=== PATIENT | female | born 1985 | race Caucasian/White ===

== ENCOUNTER → 2016-06-20 | Outpatient (CLI) | payer SELFPAY | LOC: RAD 12:00 | PROVIDERS: ATTEND Nurse Practitioner Women's Health | DX: Z34.82 Encounter for supervision of other normal pregnancy, second trimester (principal) | CPT/HCPCS: 76805 ==

== ENCOUNTER 2016-10-08 04:43 | Inpatient (IN) | payer MEDICAID ==
[2016-10-08] MEDS ORDERED: MAGNESIUM HYDROXIDE SUSP 30 ML UDCUP PO PRN (05:04)
[2016-10-08] MEDS ORDERED: PROMETHAZINE HCL 25 MG TABLET PO PRN (05:04)
[2016-10-08] MEDS ORDERED: BENZOCAINE/MENTHOL AEROSOL SPRAY 56 ML TOP PRN (05:04)
[2016-10-08] MEDS ORDERED: MEASLES,MUMPS&RUBELLA VACC/PF 0.5 ML VIAL SUBCUT PRN (05:04)
[2016-10-08] MEDS ORDERED: PROMETHAZINE HCL 25 MG SUPP.RECT PR PRN (05:04)
[2016-10-08] MEDS ORDERED: DIPHENHYDRAMINE HCL 25 MG CAPSULE PO PRN (05:04)
[2016-10-08] MEDS ORDERED: GLYCERIN/WITCH HAZEL LEAF 1 EACH MED..PAD TP PRN (05:04)
[2016-10-08] MEDS ORDERED: ZOLPIDEM TARTRATE 5 MG TABLET PO PRN (05:04)
[2016-10-08] MEDS ORDERED: PSEUDOEPHEDRINE HCL 30 MG TABLET PO PRN (05:04)
[2016-10-08] MEDS ORDERED: PROMETHAZINE HCL INJ 25 MG/1 ML VIAL IV PRN (05:04)
[2016-10-08] MEDS ORDERED: OXYTOCIN/NORMAL SALINE 1,000 ML IV PRN (05:04)
[2016-10-08] MEDS ORDERED: DIPH/PERTUSS(ACELL)/TETANUS VAC/PF 0.5 ML SYR (>=10YO) IM PRN (05:04)
[2016-10-08] MEDS ORDERED: DIBUCAINE 1% OINTMENT 28 GM TP PRN (05:04)
[2016-10-08] MEDS ORDERED: ACETAMINOPHEN 650 MG SUPP.RECT PR PRN (05:04)
[2016-10-08] MEDS ORDERED: NA PHOS,M-B/NA PHOS,DI-BA (ADULT) 133 ML ENEMA PR PRN (05:04)
[2016-10-08] MEDS ORDERED: ACETAMINOPHEN WITH CODEINE #3 TABLET PO PRN ×2 (05:04)
[2016-10-08 05:29] LABS: ABSOLUTE LYMPHOCYTES (AUTO) 1.3 10^3/uL (0.5-4.7); ABSOLUTE MONOCYTES (AUTO) 0.5 10^3/uL (0.1-1.4); ABSOLUTE NEUT (AUTO) 13.2 10^3/uL (1.7-8.2); BASOPHILS % (AUTO) 0.2 % (0-2); EOSINOPHILS % (AUTO) 0.1 % (0-6); HEMATOCRIT 33.1 % (36.0-47.0); HEMOGLOBIN 11.5 g/dL (12.0-15.5); HGB HCT DIFFERENCE 1.4; LYMPHOCYTES % (AUTO) 8.5 % (13-45); MEAN CORPUSCULAR HEMOGLOBIN 31.8 pg (27.0-33.4); MEAN CORPUSCULAR HGB CONC 34.7 g/dL (32.0-36.0); MEAN CORPUSCULAR VOLUME 92 fl (80-97); MONOCYTES % (AUTO) 3.6 % (3-13); RED BLOOD COUNT 3.61 10^6/uL (3.72-5.28); RED CELL DISTRIBUTION WIDTH 12.4 % (11.5-14.0); SEGMENTED NEUTROPHILS % (AUTO) 87.6 % (42-78)
[2016-10-08] MEDS ORDERED: OXYTOCIN/NORMAL SALINE 20 UNIT/1,000 ML RTUINJ ONE (05:48)
--- NOTE | 2016-10-08 07:35 | Delivery Summary ---
Del Sum A-C Datetime Report Generated by CPN: 10/08/2016 07:34 DELIVERY PERSONNEL DELIVERY PERSONNEL: ,[id number] Delivery Doctor:: Trav Desir MD Labor and Delivery Nurse:: Jen Spears RN Valve Mechanic/CABIN MAN: Christine Hensley, ST MATERNAL INFORMATION Delivery Anesthesia: None Medications After Delivery: Pitocin Drip 20 Units/1000ml NSS Meds After Delivery Comment: bolus Estimated Blood Loss (ml): 250 Maternal Complications: Precipitous Labor (<3hrs) Provider Comments: She delivered in the ambulance. The placenta was delivered in the room. LABOR SUMMARY EDC: 10/02/2016 00:00 No. Babies in Womb: 1 (Annotations: Data stored by [facility] on behalf of user) Attempted: No Labor Anesthesia: None LABOR INFORMATION Reason for Induction: Not Applicable Onset of Labor: 10/08/2016 04:00 Oxytocin: N/A Group B Beta Strep: negative Antibiotics # of Doses: 0 Steroids Given: None Reason Steroids Not Administered: Not Applicable MEMBRANES Membranes Rupture Method: Spontaneous Rupture of Membranes: 10/08/2016 04:00 Length of Rupture (hr): 0.53 Amniotic Fluid Color: Moderate Meconium Amniotic Fluid Amount: Moderate Amniotic Fluid Odor: Normal STAGES OF LABOR Stage 3 hr: 0 Stage 3 min: 17 Total Time in Labor hr: 0 Total Time in Labor min: 49 VAGINAL DELIVERY Episiotomy: None Laceration Extension: N/A Laceration Type: None Laceration Repair: Not Applicable Sponge Count Correct: N/A Sharps Count Correct: N/A CSECTION DELIVERY Primary Indication: N/A Secondary Indication: N/A CSection Incidence: N/A Labor: N/A Elective: N/A CSection Incision: N/A BABY A INFORMATION Infant Delivery Date/Time: 10/08/2016 04:32 Method of Delivery: Vaginal Born in Route : Yes : N/A Forceps: N/A Vacuum Extraction: N/A Shoulder Dystocia : No PRESENTATION/POSITION BABY A Presentation: Cephalic Cephalic Presentation: Vertex Breech Presentation: N/A PLACENTA INFORMATION BABY A Placenta Delivery Time : 10/08/2016 04:49 Placenta Method of Delivery: Spontaneous Placenta Status: Delivered SCORES BABY A Heart Rate 1 min: >100 bpm Resp Effort 1 min: Slow, Irregular Reflex Irritability 1 min: Cough or Sneeze or Pulls Away Muscle Tone 1 min: Active Motion Color 1 min: Blue/Pale Resuscitation Effort 1 min: Tactile Stimulation SCORE 1 MIN: 7 Heart Rate 5 min: >100 bpm Resp Effort 5 min: Good Cry Reflex Irritability 5 min: Cough or Sneeze or Pulls Away Muscle Tone 5 min: Active Motion Color 5 min: Body [place], Extremities Blue Resuscitation Effort 5 min: N/A SCORE 5 MIN: 9 INFORMATION BABY A Gestational Age at Delivery: 40.6 Gestational Status: Full Term- 39- 40.6 Weeks Infant Outcome : Liveborn Infant Condition : Stable Infant Sex: Male IDENTIFICATION BABY A Verification Date/Time: 10/08/2016 05:04 ID Band Number: [id number] Mother's Name Verified: Yes RN Verifying : SRosalind Jonas, RN _ JRosalind [facility] [place], RN WEIGHT/LENGTH BABY A Birthweight (gm): 3980 Infant Weight (lb): 8 Weight (oz): 12 Length (in): 20.50 Infant Length (cm): 52.07 CORD INFORMATION BABY A No. Cord Vessels: 3 Nuchal Cord : N/A Cord Blood Taken: No-Annotate Banking/Donate Info: did not obtain cord blood Suction: None ASSESSMENT BABY A Skin to Skin: No Transferred To: [facility] BABY B INFORMATION : N/A SIGNATURES Signature: with User ID: [email or web address]
[2016-10-08 07:47] LABS: APPEARANCE,URINE CLOUDY; BILIRUBIN,URINE NEGATIVE (NEGATIVE); GLUCOSE, URINE NEGATIVE (NEGATIVE); KETONES,URINE 20 mg/dL (NEGATIVE); LEUKOCYTE ESTERASE,URINE TRACE (NEGATIVE); NITRITE,URINE NEGATIVE (NEGATIVE); PROTEIN,URINE 100 mg/dL (NEGATIVE); URINE SPECIFIC GRAVITY 1.014; UROBILINOGEN,URINE NEGATIVE mg/dL (<2.0)
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
[2016-10-08 08:10] LABS: URINE BARBITURATES SCREEN NEGATIVE; URINE METHADONE SCREEN NEGATIVE; URINE OPIATES LOW NEGATIVE; URINE PHENCYCLIDINE SCREEN NEGATIVE
[2016-10-08] MEDS: FERROUS SULFATE 325 MG TABLET PO SCH ×2 (10:22→17:22)
[2016-10-08] MEDS: FAMOTIDINE 20 MG TABLET PO SCH ×2 (10:22→21:07)
[2016-10-08] MEDS: DOCUSATE SODIUM 100 MG CAPSULE PO SCH ×2 (10:22→17:22)
[2016-10-08] MEDS: PRENATAL VITAMIN W-O CA NO5/FE FUMARATE/FA CAPSULE PO SCH (10:22)
[2016-10-08] MEDS: SENNOSIDES/DOCUSATE 8.6-50 MG 1 EACH TABLET PO SCH (10:23)
[2016-10-08] MEDS: IBUPROFEN 800 MG TABLET PO SCH ×3 (11:45→21:06)
[2016-10-08] MEDS ORDERED: ACETAMINOPHEN 325 MG TABLET PO PRN (12:04)
[2016-10-09] MEDS: IBUPROFEN 800 MG TABLET PO SCH ×3 (05:10→21:17)
[2016-10-09 07:34] LABS: HEMATOCRIT 30.3 % (36.0-47.0); HEMOGLOBIN 10.6 g/dL (12.0-15.5); HGB HCT DIFFERENCE 1.5; MEAN CORPUSCULAR HEMOGLOBIN 32.2 pg (27.0-33.4); MEAN CORPUSCULAR VOLUME 92 fl (80-97); RED BLOOD COUNT 3.29 10^6/uL (3.72-5.28); RED CELL DISTRIBUTION WIDTH 12.9 % (11.5-14.0); WHITE BLOOD COUNT 10.7 10^3/uL (4.0-10.5)
[2016-10-09] MEDS: PRENATAL VITAMIN W-O CA NO5/FE FUMARATE/FA CAPSULE PO SCH (09:43)
[2016-10-09] MEDS: FERROUS SULFATE 325 MG TABLET PO SCH ×2 (09:44→17:35)
[2016-10-09] MEDS: DOCUSATE SODIUM 100 MG CAPSULE PO SCH ×2 (09:44→17:35)
[2016-10-09] MEDS: FAMOTIDINE 20 MG TABLET PO SCH ×2 (09:44→21:17)
[2016-10-09] MEDS: SENNOSIDES/DOCUSATE 8.6-50 MG 1 EACH TABLET PO SCH (09:45)
--- NOTE | 2016-10-09 11:32 | PDOC PROGRESS REPORT ---
Subjective-OB Subjective: Post Delivery Day:1 31 year old G14 now P8 s/p ppd1. Ambulating without difficulty. Denies any needs at this time Physical Exam (OB) Vital Signs: Temp Pulse Resp BP Pulse Ox 97.3 F 45 L 18 91/50 L 99 10/09/16 07:23 10/09/16 07:23 10/09/16 07:23 10/09/16 07:23 10/09/16 07:23 Intake & Output 10/08/16 10/09/16 10/10/16 06:59 06:59 06:59 Weight 77.564 kg - General General Appearance: Appears well In distress: None - Episiotomy/Laceration Site Condition: N/A - Lochia Lochia Amount: Moderate 25-50 ml Lochia Color: Serosa/Brown - Abdomen Description: Soft Hernia Present: No Fundal Description: Firm, Midline Fundal Height: u/u - u/2 - Respiratory Respiratory Status: No respiratory distress - Extremities Upper extremity: Normal inspection Lower extremities: Normal inspection - Neurological Cognition: Normal Orientation: AAOx4 - Psychological Associated symptoms: Flat affect Objective-Diagnostic Laboratory: 10/09/16 07:00 10/09/16 10/09/16 07:00 07:00 WBC 10.7 H RBC 3.29 L Hgb 10.6 L Hct 30.3 L MCV 92 MCH 32.2 MCHC 35.0 RDW 12.9 Plt Count 151 Blood Type O NEGATIVE Assessment and Plan(PN) - Assessment and Plan (1) Acute blood loss anemia Is this a current diagnosis for this admission?: YesPlan: inc. iron in diet and feso4 supplementation (2) Delivery normal Is this a current diagnosis for this admission?: YesPlan: continue stay (3) Benzodiazepine abuse Is this a current diagnosis for this admission?: YesPlan: discharge planning and resources,continue stay (4) Cocaine abuse affecting Qualifiers: Trimester: unspecified trimester Qualified Code(s): O99.320 - Drug use complicating , unspecified trimester Is this a current diagnosis for this admission?: YesPlan: continue stay, discharge planning - Time Spent with Patient Time with patient: Less than 15 minutes Smoking Education Provided: Over 3 minutes Medications reviewed and adjusted accordingly: Yes - Disposition Anticipated Discharge: Home Within: within 24 hours
[2016-10-10] MEDS: IBUPROFEN 800 MG TABLET PO SCH ×2 (05:58→13:48)
[2016-10-10 08:30] VITALS: BP 99/64
[2016-10-10] MEDS: FAMOTIDINE 20 MG TABLET PO SCH (09:16)
[2016-10-10] MEDS: SENNOSIDES/DOCUSATE 8.6-50 MG 1 EACH TABLET PO SCH (09:16)
[2016-10-10] MEDS: DOCUSATE SODIUM 100 MG CAPSULE PO SCH (09:16)
[2016-10-10] MEDS: PRENATAL VITAMIN W-O CA NO5/FE FUMARATE/FA CAPSULE PO SCH (09:16)
[2016-10-10] MEDS: FERROUS SULFATE 325 MG TABLET PO SCH (09:16)
--- NOTE | 2016-10-10 11:12 | PDOC DISCHARGE SUMMARY ---
Final Diagnosis Discharge Date: 10/10/16 - Final Diagnosis (1) Acute blood loss anemia Is this a current diagnosis for this admission?: Yes (2) Delivery normal Is this a current diagnosis for this admission?: Yes (3) Benzodiazepine abuse Is this a current diagnosis for this admission?: Yes (4) Cocaine abuse affecting Is this a current diagnosis for this admission?: Yes Discharge Data - Discharge Medication Home Medications: Pnv W-O Ca No5/Fe Fumarate/FA [-U Multiple Vitamin Capsule] 1 cap PO DAILY #30 capsule 11/04/11 Reason(s) for Admission: Onset of Labor Procedures: None Intrapartum Procedure(s): Spontaneous Vaginal Delivery - Diagnosis Test Laboratory: Temp Pulse Resp BP Pulse Ox 97.7 F 59 L 16 99/64 L 97 10/10/16 07:27 10/10/16 07:27 10/10/16 07:27 10/10/16 07:27 10/10/16 07:27 10/08/16 10/08/16 10/09/16 05:06 06:55 07:00 RBC 3.61 L 3.29 L Hgb 11.5 L 10.6 L Hct 33.1 L 30.3 L Urine Opiates Screen NEGATIVE - Discharge information/Instructions Discharge Activity: Balance Activity w/Rest Discharge Diet: Regular Disposition: HOME, SELF-CARE Follow up with: [facility] in: 4 - landscape architect and planner and DSS
--- NOTE | 2016-10-10 11:26 | PDOC PROGRESS REPORT ---
Subjective-OB Subjective: Post Delivery Day: 31 year old. Denies any needs at this time grand multip history of cocaine abuse late to minimal pnc ff@u-2 reports heavy clots methergine 0.2 mg po x 1 now precautions given DSS and inventory planner involved pt doesn't have custody of other 6 children pt states she will be going to [place] and performing mandatory training Physical Exam (OB) Vital Signs: Temp Pulse Resp BP Pulse Ox 97.7 F 59 L 16 99/64 L 97 10/10/16 07:27 10/10/16 07:27 10/10/16 07:27 10/10/16 07:27 10/10/16 07:27 Intake & Output 10/09/16 10/10/16 10/11/16 06:59 06:59 06:59 Intake Total 0 300 Balance 0 300 - Lochia Lochia Amount: Scant < 10 ml Lochia Color: Serosa/Brown - Abdomen Description: Soft Hernia Present: No Fundal Description: Firm, Midline Fundal Height: u/u - u/2 Objective-Diagnostic Laboratory: 10/09/16 07:00 10/09/16 07:00 Blood Type O NEGATIVE Assessment and Plan(PN) - Assessment and Plan (1) Acute blood loss anemia Is this a current diagnosis for this admission?: Yes (2) Delivery normal Is this a current diagnosis for this admission?: Yes (3) Benzodiazepine abuse Is this a current diagnosis for this admission?: Yes (4) Cocaine abuse affecting Qualifiers: Trimester: unspecified trimester Qualified Code(s): O99.320 - Drug use complicating , unspecified trimester Is this a current diagnosis for this admission?: Yes - Time Spent with Patient Smoking Education Provided: Over 3 minutes Medications reviewed and adjusted accordingly: Yes - Disposition Anticipated Discharge: Home
== END 2016-10-10 14:41 | disposition home or self-care (01) | DRG 775 ==
LOC: LC 04:43 → LR 04:59 → 2S 07:45
PROVIDERS: ADMIT Obstetrics & Gynecology; ATTEND Obstetrics & Gynecology
PROC: 10E0XZZ Delivery of Products of Conception, External Approach (ICD-10-PCS; principal; 2016-10-08)
PROC: 4A1HXCZ Monitoring of Products of Conception, Cardiac Rate, External Approach (ICD-10-PCS; 2016-10-08)
DX: O99.02 Anemia complicating childbirth (principal); D62 Acute posthemorrhagic anemia; O99.324 Drug use complicating childbirth; F11.10 Opioid abuse, uncomplicated; F14.10 Cocaine abuse, uncomplicated; O99.334 Smoking (tobacco) complicating childbirth; F17.210 Nicotine dependence, cigarettes, uncomplicated; O99.344 Other mental disorders complicating childbirth; F31.9 Bipolar disorder, unspecified; O62.3 Precipitate labor; O77.0 Labor and delivery complicated by meconium in amniotic fluid; Z88.6 Allergy status to analgesic agent; Z37.0 Single live birth
CPT/HCPCS: 36415; 80307; 81005; 85025; 85027; 85461; 86592; 86850; 86900; 86901; 88307; J2590; J2790

== ENCOUNTER 2017-02-05 10:10 | Emergency (ER) | payer SELFPAY ==
[2017-02-05 10:16] VITALS: BP 116/79
[2017-02-05 12:02] LABS: ANION GAP 11 (5-19); BLOOD UREA NITROGEN 14 mg/dL (7-20); CALCIUM 9.9 mg/dL (8.4-10.2); CARBON DIOXIDE 24 mmol/L (22-30); CHLORIDE 109 mmol/L (98-107); CREATININE RESULT 0.81 mg/dL (0.52-1.25); GLUCOSE 88 mg/dL (75-110); POTASSIUM 4.6 mmol/L (3.6-5.0); SODIUM 143.9 mmol/L (137-145)
[2017-02-05 12:07] LABS: ALCOHOL < 10 mg/dL (NONE DETECTED)
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
[2017-02-05 13:10] LABS: APPEARANCE,URINE CLEAR; BILIRUBIN,URINE NEGATIVE (NEGATIVE); GLUCOSE, URINE NEGATIVE (NEGATIVE); KETONES,URINE NEGATIVE (NEGATIVE); LEUKOCYTE ESTERASE,URINE NEGATIVE (NEGATIVE); NITRITE,URINE NEGATIVE (NEGATIVE); PROTEIN,URINE NEGATIVE (NEGATIVE); URINE SPECIFIC GRAVITY 1.042; UROBILINOGEN,URINE NEGATIVE mg/dL (<2.0)
[2017-02-05 13:26] LABS: URINE BARBITURATES SCREEN NEGATIVE; URINE METHADONE SCREEN NEGATIVE; URINE OPIATES LOW NEGATIVE; URINE PHENCYCLIDINE SCREEN NEGATIVE
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
== END 2017-02-05 14:17 | disposition left against medical advice (07) ==
LOC: ER 10:10 → EEVIPCON 10:10 → ER 14:17
DX: S09.90XA Unspecified injury of head, initial encounter (principal); S00.83XA Contusion of other part of head, initial encounter; R51 Headache; Y04.0XXA Assault by unarmed brawl or fight, initial encounter; Z79.899 Other long term (current) drug therapy
CPT/HCPCS: 36415; 70450; 70491; 80048; 80307; 81001; 84703; 99281

== ENCOUNTER 2017-06-23 18:43 | Emergency (ER) | payer SELFPAY ==
[2017-06-23] MEDS ORDERED: ONDANSETRON HCL INJ/PF 4 MG/2 ML SDV IV ONE (19:46)
[2017-06-23] MEDS ORDERED: NORMAL SALINE 1000 ML 1,000 ML IV ONE (19:46)
--- NOTE | 2017-06-23 19:50 | ER Document Report ---
ED General - General Chief Complaint: Other Stated Complaint: ABDOMINAL PAIN Time Seen by Provider: 06/23/17 19:34 Notes: Patient is a 32-year-old female who comes emergency department for several complaints. First complaint is pain over her right wrist, she states she fell on her wrist on the knife and has had pain to the area for the past several days. She states she had a small cut over her wrist but this was small and healed already, reports tetanus is up-to-date. Second complaint is since yesterday she has had intermittent mid lower abdominal pains and cramping. She reports nausea but denies vomiting. She denies fever, denies flank pain. Patient states she also has intermittent discomfort in her feet but has been walking barefoot, states she just wants them checked. Patient does have a history of heroin abuse, states she has not used in 1.5 weeks. She denies chest pain, difficulty breathing, back pain. TRAVEL OUTSIDE OF THE [place] IN LAST 30 DAYS: No - Related Data Allergies/Adverse Reactions: hydrocodone bitartrate [From Vicodin] Adverse Reaction (Mild, Verified 06/23/17 18:46) nausea and vomiting Past Medical History - General Information source: Patient - Social History Smoking Status: Current Every Day Smoker Chew tobacco use (# tins/day): No Smoking Education Provided: Yes - <3 min Frequency of alcohol use: Occasional Drug Abuse: None Lives with: Family Family History: Reviewed & Not Pertinent Patient has suicidal ideation: No Patient has homicidal ideation: No Renal/ Medical History: Denies: Hx Peritoneal Dialysis Malignancy Medical History: Reports: 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 Psychiatric Medical History: Reports: Hx Bipolar Disorder Past Surgical History: Reports: Hx Orthopedic Surgery - Immunizations Immunizations up to date: Yes Hx Diphtheria, Pertussis, Tetanus Vaccination: Yes Review of Systems - Review of Systems Constitutional: No symptoms reported EENT: No symptoms reported Cardiovascular: No symptoms reported Respiratory: No symptoms reported Gastrointestinal: See HPI Genitourinary: See HPI Female Genitourinary: See HPI Musculoskeletal: No symptoms reported Skin: See HPI Hematologic/Lymphatic: No symptoms reported Neurological/Psychological: No symptoms reported Physical Exam - Vital signs Vitals: Temp Pulse Resp BP Pulse Ox 97.8 F 133 H 28 H 125/96 H 98 06/23/17 18:58 06/23/17 18:58 06/23/17 18:58 06/23/17 18:58 06/23/17 18:58 - General General appearance: Appears well In distress: None - HEENT Head: Normocephalic, Atraumatic Eyes: Normal Extraocular movements intact: Yes Eyelashes: Normal Pupils: PERRL Mouth/Lips: Normal Mucous membranes: Normal Pharynx: Normal Neck: Normal - Respiratory Respiratory status: No respiratory distress Breath sounds: Normal. No: Decreased air movement, Wheezing - Cardiovascular Rhythm: Regular, Tachycardia - borderline Heart sounds: Normal auscultation, S1 appreciated, S2 appreciated - Abdominal Inspection: Normal Tenderness: Tender - There is tenderness in the suprapubic area and bilaterally in the pelvic areas, nonspecific, no guarding, no rebound tenderness, upper abdomen is benign - Genitourinary External exam: Normal Speculum exam: Cervix closed, Vaginal discharge - moderate Vaginal bleeding: None Bimanuel exam: No: Cervical motion tender Notes: Examination performed with [facility] PCT at bedside and assisting - Back Back: Normal, Nontender. No: Tender - Extremities General upper extremity: Other - Small old abrasion over the dorsal right wrist , patient complains of pain with palpation but this is nonspecific, no overt snuffbox tenderness, no swelling, normal wrist, hand, upper extremity exam otherwise. Normal distal neurovascular exam. General lower extremity: Normal inspection, Nontender, Normal strength, Normal temperature. No: Edema - Neurological Neuro grossly intact: Yes Cognition: Normal Orientation: AAOx4 Cable Coma Scale Eye Opening: Spontaneous Andrae Coma Scale Verbal: Oriented Andrae Coma Scale Motor: Obeys Commands Cable Coma Scale Total: 15 Speech: Normal Motor strength normal: LUE, RUE, LLE, RLE Sensory: Normal - Psychological Associated symptoms: Normal affect, Normal mood - patient speaks slightly rapidly, but she is not agitated or anxious on my exam - Skin Skin Temperature: Warm Skin Moisture: Dry Skin Color: Normal Course - Re-evaluation Re-evalutation: Patient was initially tachycardic, however she is smiling, well-appearing, nontoxic. She does have pain over the suprapubic and pelvic areas but this is not consistent with acute abdomen, mild generalized tenderness. Moderate amount of discharge on vaginal exam, 3+ white blood cells. CBC unremarkable, chemistry unremarkable. No back pain, chest pain, fever, or evidence of septic emboli, low suspicion of endocarditis or underlying abscess from IV drug abuse. Chlamydia is negative, gonorrhea is positive, treated for both. HCG is negative. Patient not tachycardic after IV fluids, continues to be well- appearing. Discussed with patient PID, treatment, follow-up, partner treatment , return precautions in detail. Patient states satisfaction and agreement. - Vital Signs Vital signs: Temp Pulse Resp BP Pulse Ox 97.9 F 64 17 116/68 100 06/23/17 22:50 06/23/17 22:50 06/23/17 22:50 06/23/17 22:50 06/23/17 22:50 - Laboratory Result Diagrams: 06/23/17 20:33 06/23/17 20:33 Laboratory results interpreted by me: 06/23/17 06/23/17 06/23/17 20:33 21:03 22:48 RDW 14.2 H Urine Ketones TRACE H Urine Urobilinogen 4.0 H Ur Leukocyte Esterase TRACE H N.gonorrhoeae DNA (PCR) DETECTED H - Diagnostic Test Radiology reviewed: Image reviewed, Reports reviewed Discharge - Discharge Clinical Impression: Pelvic pain Wrist pain Qualifiers: Laterality: right Qualified Code(s): M25.531 - Pain in right wrist Condition: Stable Disposition: HOME, SELF-CARE Additional Instructions: Your workup shows positive test for gonorrhea, pelvic inflammatory disease, you have been treated for this. No intercourse for 1 week. Your partner also needs to be treated. The x-ray of your hand/wrist is normal, no fracture or other abnormality is seen. Take ibuprofen, ice the wrist, rest the wrist. This should resolve with time. Follow-up with primary care. Return for any concerning symptoms including vomiting, fever, severe abdominal pain, or any other concerning or worsening symptoms.
--- NOTE | 2017-06-23 20:24 | RADIOLOGY REPORT (SQ) ---
EXAM DESCRIPTION: WRIST RIGHT 3 VIEWS COMPLETED DATE/TIME: 06/23/2017 8:11 pm REASON FOR STUDY: fall, injury, pain COMPARISON: None. NUMBER OF VIEWS: Three views. TECHNIQUE: AP, lateral, and oblique radiographic images acquired of the right wrist. LIMITATIONS: None. FINDINGS: MINERALIZATION: Normal. BONES: No acute fracture or dislocation. No worrisome bone lesions. Normal alignment. SOFT TISSUES: No soft tissue swelling. No foreign body. OTHER: No other significant finding. IMPRESSION: NEGATIVE STUDY OF THE RIGHT WRIST. NO RADIOGRAPHIC EVIDENCE OF ACUTE INJURY. TECHNICAL DOCUMENTATION: JOB ID: [id number] [employer]- All Rights Reserved Reading location - IP/workstation name: [email or web address]
[2017-06-23 20:44] LABS: ABSOLUTE BASOPHILS # (AUTO) 0.1 10^3/uL (0.0-0.2); ABSOLUTE EOSINOPHILS # (AUTO) 0.1 10^3/uL (0.0-0.6); ABSOLUTE LYMPHOCYTES (AUTO) 2.1 10^3/uL (0.5-4.7); ABSOLUTE MONOCYTES (AUTO) 0.5 10^3/uL (0.1-1.4); ABSOLUTE NEUT (AUTO) 4.5 10^3/uL (1.7-8.2); BASOPHILS % (AUTO) 1.2 % (0-2); EOSINOPHILS % (AUTO) 1.9 % (0-6); HEMATOCRIT 41.8 % (36.0-47.0); HEMOGLOBIN 14.1 g/dL (12.0-15.5); LYMPHOCYTES % (AUTO) 28.6 % (13-45); MEAN CORPUSCULAR HEMOGLOBIN 28.3 pg (27.0-33.4); MEAN CORPUSCULAR HGB CONC 33.7 g/dL (32.0-36.0); MEAN CORPUSCULAR VOLUME 84 fl (80-97); MONOCYTES % (AUTO) 6.5 % (3-13); PLATELET COUNT 274 10^3/uL (150-450); RED BLOOD COUNT 4.98 10^6/uL (3.72-5.28); RED CELL DISTRIBUTION WIDTH 14.2 % (11.5-14.0); SEGMENTED NEUTROPHILS % (AUTO) 61.8 % (42-78); TOTAL CELLS COUNTED % (AUTO) 100 %; WHITE BLOOD COUNT 7.2 10^3/uL (4.0-10.5)
[2017-06-23 20:59] LABS: ALANINE AMINOTRANSFERASE 32 U/L (9-52); ALBUMIN 4.4 g/dL (3.5-5.0); ALKALINE PHOSPHATASE 69 U/L (38-126); ANION GAP 8 (5-19); ASPARTATE AMINO TRANSFERASE 25 U/L (14-36); BILIRUBIN,DIRECT 0.1 mg/dL (0.0-0.4); BILIRUBIN,TOTAL 0.6 mg/dL (0.2-1.3); BLOOD UREA NITROGEN 11 mg/dL (7-20); CALCIUM 10.2 mg/dL (8.4-10.2); CARBON DIOXIDE 28 mmol/L (22-30); CHLORIDE 105 mmol/L (98-107); GLUCOSE 104 mg/dL (75-110); POTASSIUM 3.8 mmol/L (3.6-5.0); SODIUM 140.9 mmol/L (137-145)
[2017-06-23 21:15] LABS: EPITHELIALS (WET MOUNT) 4+ EPITHELIALS SEEN; RBCS (WET MOUNT) RARE RBCS SEEN; T.VAGINALIS (WET MOUNT) NO TRICHOMONAS SEEN; WBCS (WET MOUNT) 3+ WBCS SEEN; YEAST (WET MOUNT) NO YEAST SEEN
[2017-06-23 22:40] LABS: CHLAM PCR NOT DETECTED (NOT DETECT); GON PCR DETECTED (NOT DETECT)
[2017-06-23 22:51] VITALS: BP 116/68
[2017-06-23] MEDS ORDERED: CEFTRIAXONE INJ 250 MG VIAL IM ONE (23:09)
[2017-06-23] MEDS ORDERED: LIDOCAINE 1% INJ-PF (10 MG/ML) 30 ML SDV INJ ONE (23:09)
[2017-06-23] MEDS ORDERED: AZITHROMYCIN 250 MG TABLET PO ONE (23:09)
[2017-06-23 23:22] LABS: APPEARANCE,URINE SLIGHTLY-CLOUDY; BILIRUBIN,URINE NEGATIVE (NEGATIVE); COLOR,URINE YELLOW; GLUCOSE, URINE NEGATIVE (NEGATIVE); KETONES,URINE TRACE mg/dL (NEGATIVE); LEUKOCYTE ESTERASE,URINE TRACE (NEGATIVE); NITRITE,URINE NEGATIVE (NEGATIVE); PROTEIN,URINE NEGATIVE (NEGATIVE); URINE SPECIFIC GRAVITY 1.023
== END 2017-06-24 00:30 | disposition home or self-care (01) ==
LOC: ER 18:43
DX: A54.9 Gonococcal infection, unspecified (principal); S60.811A Abrasion of right wrist, initial encounter; M25.531 Pain in right wrist; W19.XXXA Unspecified fall, initial encounter; W26.0XXA Contact with knife, initial encounter; R10.2 Pelvic and perineal pain; R11.0 Nausea; R00.0 Tachycardia, unspecified; F17.200 Nicotine dependence, unspecified, uncomplicated; Z87.410 Personal history of cervical dysplasia
CPT/HCPCS: 99284; 96361; 96374; 36415; 87210; 85025; 81025; 80053; 81001; 87491; 87591; 73110; J3490; J2405; J7030; J0696

== ENCOUNTER 2017-07-03 20:48 | Emergency (ER) | payer SELFPAY ==
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
[2017-07-03 21:48] VITALS: BP 126/87
== END 2017-07-03 21:48 | disposition home or self-care (01) ==
LOC: ER 20:48
DX: F19.10 Other psychoactive substance abuse, uncomplicated (principal); H91.92 Unspecified hearing loss, left ear; T43.621A Poisoning by amphetamines, accidental (unintentional), initial encounter; Y92.59 Other trade areas as the place of occurrence of the external cause; F17.200 Nicotine dependence, unspecified, uncomplicated
CPT/HCPCS: 99284

== ENCOUNTER 2017-08-07 19:33 | Emergency (ER) | payer SELFPAY ==
[2017-08-07 20:20] VITALS: BP 109/57
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
== END 2017-08-07 20:56 | disposition home or self-care (01) ==
LOC: ER 19:33
DX: O26.891 Other specified pregnancy related conditions, first trimester (principal); R21 Rash and other nonspecific skin eruption; Z3A.00 Weeks of gestation of pregnancy not specified; Z85.41 Personal history of malignant neoplasm of cervix uteri
CPT/HCPCS: 99282

== ENCOUNTER 2017-08-09 20:14 | Emergency (ER) | payer SELFPAY ==
[2017-08-09 20:55] VITALS: BP 103/66
[2017-08-09] MEDS ORDERED: DIPHENHYDRAMINE HCL 25 MG CAPSULE PO ONE (22:21)
--- NOTE | 2017-08-09 22:30 | ER Document Report ---
ED Skin Rash/Insect Bite/Abscs - General Chief Complaint: Dizziness Stated Complaint: WEAKNESS Time Seen by Provider: 08/09/17 21:51 Mode of Arrival: Ambulatory Information source: Patient TRAVEL OUTSIDE OF THE [place] IN LAST 30 DAYS: No - HPI Patient complains to provider of: Skin rash/lesion Notes: Patient is here with 2 complaints. The patient states that she was diagnosed with scabies a few days ago and used Elimite 2 days ago but continues to have the rash and itch. She is requesting a refill on the Elimite that she was given. She states that she continues to have a lot of itching and has not taken anything for the itching but is starting to drive her crazy. States that she also took a caffeine pill earlier today and after taking it she felt extremely jittery and weak. She was feeling nauseous. She states that all of these symptoms have since resolved and she feels much better. She denies any chest pain or shortness of breath at this time. She declines wanting to be worked up for this since she states that she is feeling better at this time. The patient also states that she is at this time and is wanting to know if she can safely take [id number] to help with . She denies any abdominal pain at this time. She denies any fevers. She denies any dysuria or hematuria. No vaginal bleeding or discharge. No other complaints at this time. 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 HEAD: normocephalic, atraumatic EYES: conjunctiva pink without discharge, no external redness or swelling. EARS: no external swelling, no external redness NOSE: atraumatic, no external swelling MOUTH/THROAT: mucous membranes moist and pink, posterior pharynx without erythema, swelling, exudate. No trismus or drooling. NECK: soft, supple, full range of motion, no meningismus. CHEST: no distress, lungs clear and equal throughout. No wheezing, rales, rhonchi. CARDIAC: regular rate and rhythm, no murmur, normal capillary refill, normal pulses. No peripheral edema noted. ABDOMEN: Soft, nontender. BACK: full range of motion, no CVA tenderness. EXTREMITIES: full range of motion of all extremities. No redness, no swelling. NEURO: alert and oriented x 3, no focal deficits, full range of motion of all extremities. PYSCH: appropriate mood, affect. Patient is cooperative. SKIN: pink, warm, dry, diffuse excoriated rash. No surrounding redness, cellulitis, abscess. No petechiae. No vesicles. Course - Re-evaluation Re-evalutation: 08/09/17 22:26 Patient is nontoxic appearing with stable vitals. She is here with multiple complaints. Initially she states that she took a caffeine pill earlier today and this made her feel extremely jittery and weak. She denies any chest pain or shortness of breath at this time. She states that she is feeling significantly better regarding way she felt after taking a caffeine pill and is not concerned with the way she was feeling earlier at this time and does not want a workup at this time. Her biggest complaint is that she is having a lot of itching from her recent scabies diagnosis. Patient does have a rash consistent with scabies. There is no signs of infection. At this point the patient will be given a dose of Benadryl here. She is . She is instructed to take [id number] Benadryl to help with itching. I will write her another prescription for the Elimite, but she was instructed to wait 1 week before using it. She is also instructed to wash everything in hot water , to vacuum all carpet and furniture. She has no abdominal pain or abdominal tenderness on exam at this time. She states that she really does not want any further evaluation, she mainly just wants medication for her scabies. This point the patient will be discharged home. Follow-up with the health department regarding her . Return the emergency department for severe abdominal pain, severe vaginal bleeding, persistent vomiting, or for any further concerns. Patient will be instructed on taking [id number] Unisom and vitamin B6 to help with or nausea. The patient's emergency department workup and current diagnosis were explained to the patient and or family. Follow-up instructions were provided. Medications if prescribed were discussed. Instructions for when to return to the emergency department including specific worrisome symptoms were discussed with the patient and/or family. - Vital Signs Vital signs: Temp Pulse Resp BP Pulse Ox 98.6 F 97 16 103/66 100 08/09/17 20:54 08/09/17 20:54 08/09/17 20:54 08/09/17 20:54 08/09/17 20:54 Discharge - Discharge Clinical Impression: Scabies Condition: Stable Disposition: HOME, SELF-CARE Instructions: Antinausea Medication ([facility]), Scabies ([facility]) Additional Instructions: Take [id number] Benadryl as needed for itching. Use the Elimite cream if you continue to have a rash in 1 week. Wash everything in hot water. Vacuum all carpet and furniture in her home. For your nausea in you may also take a half a tablet (12.5mg) of Unisom at bedtime. You may also take 25 mg of vitamin B6 every 8 hours as needed for nausea. Follow-up with the health department at the next available appointment regarding her . Follow- up sooner for severe abdominal pain, persistent vomiting, severe vaginal bleeding, or for any further concerns. Prescriptions: Permethrin [Elimite] 60 gm TP ONCE #120 cream.gm. Forms: Smoking Cessation Education [facility] - Follow up as needed
== END 2017-08-09 22:52 | disposition home or self-care (01) ==
LOC: ER 20:14
DX: O26.90 Pregnancy related conditions, unspecified, unspecified trimester (principal); B86 Scabies; R42 Dizziness and giddiness; R53.1 Weakness; R11.0 Nausea; Z88.6 Allergy status to analgesic agent
CPT/HCPCS: 99283

== ENCOUNTER 2017-09-27 00:47 | Emergency (ER) | payer SELFPAY ==
--- NOTE | 2017-09-27 01:05 | ER Document Report ---
ED Medical Screen (RME) - General Chief Complaint: Abscess Stated Complaint: POSSIBLE MRSA Time Seen by Provider: 09/27/17 01:04 Mode of Arrival: Ambulatory Information source: Patient Notes: 32-year-old female presented ED for complaint of a "bubble" under the right arm. She states she has never had an abscess before. She states she is extremely afraid of needles and she is not sure she is currently able to let someone open this. She states she read on the Internet that you can take antibiotics for them instead of opening the abscess. She does have a large abscess in the right axilla. I have greeted and performed a rapid initial assessment of this patient. A comprehensive ED assessment and evaluation of the patient, analysis of test results and completion of medical decision making process will be conducted by an additional ED providers. TRAVEL OUTSIDE OF THE [place] 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
[2017-09-27] MEDS ORDERED: CLINDAMYCIN HCL 150 MG CAPSULE PO ONE (02:38)
--- NOTE | 2017-09-27 03:23 | ER Document Report ---
ED General - General Chief Complaint: Abscess Stated Complaint: POSSIBLE MRSA Time Seen by Provider: 09/27/17 01:04 Mode of Arrival: Ambulatory Notes: Patient is a 32-year-old female presents with complaint of an abscess in the right axilla. She says it has been there for just over a day. She is 4 months . She denies any fevers. No vomiting. No other complaints at this time. She denies previous history of abscess. TRAVEL OUTSIDE OF THE [place] 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 Denies recent illness. CARDIOVASCULAR: Denies chest pain. SKIN: Abscess right axilla ALL OTHER SYSTEMS REVIEWED AND NEGATIVE. Physical Exam - Vital signs Vitals: Temp Pulse Resp BP Pulse Ox 97.7 F 64 18 108/77 100 09/27/17 00:47 09/27/17 00:47 09/27/17 00:47 09/27/17 00:47 09/27/17 00:47 - Notes Notes: General Appearance: Well nourished, alert, cooperative, no acute distress, no obvious discomfort. Well appearing. Vitals: reviewed, See vital signs table. Extremities: strength 5/5 in all extremities, good pulses in all extremities, no swelling or tenderness in the extremities, no edema. Skin: warm, dry, appropriate color, patient has a 2 cm abscess in the right axilla that is superficial in appearance. No purulent drainage. Erythema does not extend beyond the abscess margins. Neuro: speech clear, oriented x 3, normal affect, responds appropriately to questions. Course - Re-evaluation Re-evalutation: 09/27/17 04:00 Abscess was incised and drained. Patient was placed on Keflex. She is encouraged follow-up with her doctor Saturday for reevaluation. She is encouraged to return to ER immediately if she has recurrent swelling, spreading redness, fevers, or she feels unwell. Patient agrees with plan will be discharged home. Dictation of this chart was performed using voice recognition software; therefore, there may be some unintended grammatical errors. - Vital Signs Vital signs: Temp Pulse Resp BP Pulse Ox 97.7 F 64 18 108/77 100 09/27/17 00:47 09/27/17 00:47 09/27/17 00:47 09/27/17 00:47 09/27/17 00:47 Procedures - Incision and Drainage Right Type: Simple Blade size: 11 I&D procedure: Betadine prep applied Incision Method: Incision made by scalpel Amount/type of drainage: 3mls of purulent drainage. Discharge - Discharge Clinical Impression: Abscess Condition: Good Disposition: HOME, SELF-CARE Additional Instructions: ABSCESS: You have an abscess (boil). This a pus-forming infection, usually due to staph. Some boils may be left to drain on their own, but most require lancing. From the time the tender lump first appears, it may be three or four days before the abscess is ready to gina. Local heat and rest help at this stage of treatment. An antibiotic may prevent spread of the infection. Once the abscess is opened, packing may be placed into it. This is done so pus is not sealed inside by premature closure of the cavity. The packing will be removed at your follow-up visit or you may be advised to remove it yourself at home. Sometimes this packing must be replaced a few times during healing. The wound will heal with surprisingly little scar. Depending on the size and location of an abscess, healing can take one to four weeks. You may shower and wash the area around the incision site two or three times a day. Antibiotics may be prescribed, but are usually not necessary after an abscess has been drained. If you develop fever, chills, worsening pain, or increasing swelling in the area, call the doctor or return immediately. POST INCISION AND DRAINAGE: You have had an incision made to allow drainage of an abscess. The incision must remain open so that pus and debris can drain from the wound. If the abscess cavity is large, packing is placed. This keeps the tissues from collapsing and trapping pus inside, while the body shrinks the cavity. The packing may need to be replaced every day or two. The physician will instruct you on the packing. Keep a bulky dressing over the area. Replace it if it becomes saturated with blood or pus. Do not disturb the packing (if present). You may shower and cleanse the area with gentle soap and warm water two or three times a day. Local warmth may be soothing, and may promote faster healing. Return if you develop high fever or chills, or if you note spreading redness, increasing swelling, or increasing tenderness. CEPHALEXIN: The antibiotic you've been prescribed is a member of the cephalosporin class. This type of antibiotic covers a wide variety of infections, including those of the skin, lungs, and urinary tract. It's useful for staph infections. This antibiotic is slightly similar to the penicillin family. In rare cases , a person who is allergic to penicillin will also be allergic to this medication. If you have had a severe allergic reaction to penicillin, and have not taken this antibiotic since that time, notify your doctor. Antibiotics which cover many germs ("broad spectrum" antibiotics) are more likely to cause diarrhea or "yeast" infections. Women prone to vaginal yeast problems may suffer an attack after taking this antibiotic. In infants, oral thrush (white spots "stuck" on the cheek) or yeast diaper rash may result. See your doctor if these problems occur. Call at once if you develop itching, hives , shortness of breath, or lightheadedness. FOLLOW-UP CARE: Most simple abscesses will not require a follow up visit. If you had packing placed in the abscess, remove it as instructed by the physician. If you have been referred to a physician for follow-up care, call the physicians office for an appointment as you were instructed or within the next two days. If you experience worsening or a significant change in your symptoms, return to the Emergency Department at any time for re-evaluation. Please follow up with your doctor on Saturday for reevaluation of your right axilla. Please return to the ER immediately if you develop fevers, spreading redness, increasing swelling, or if you feel that it is worsening in any way. Prescriptions: Cephalexin Monohydrate [Keflex 500 mg Capsule] 500 mg PO Q6H 5 Days capsule
[2017-09-27 04:09] VITALS: BP 123/72
== END 2017-09-27 04:00 | disposition home or self-care (01) ==
LOC: ER 00:47
PROC: 0H9BXZZ Drainage of Right Upper Arm Skin, External Approach (ICD-10-PCS; principal; 2017-09-27)
DX: L02.411 Cutaneous abscess of right axilla (principal); Z3A.00 Weeks of gestation of pregnancy not specified
CPT/HCPCS: 99283

== ENCOUNTER 2017-11-07 18:24 | Emergency (ER) | payer SELFPAY ==
[2017-11-07 19:18] LABS: APPEARANCE,URINE CLOUDY; BILIRUBIN,URINE NEGATIVE (NEGATIVE); COLOR,URINE YELLOW; GLUCOSE, URINE NEGATIVE (NEGATIVE); KETONES,URINE NEGATIVE (NEGATIVE); LEUKOCYTE ESTERASE,URINE MODERATE (NEGATIVE); NITRITE,URINE NEGATIVE (NEGATIVE); PROTEIN,URINE 30 mg/dL (NEGATIVE); URINE SPECIFIC GRAVITY 1.018; UROBILINOGEN,URINE NEGATIVE mg/dL (<2.0)
[2017-11-07] MEDS ORDERED: CEPHALEXIN 500 MG CAPSULE PO ONE (19:31)
--- NOTE | 2017-11-07 19:43 | ER Document Report ---
ED General - General Chief Complaint: Urinary Frequency Stated Complaint: URINARY ISSUES Time Seen by Provider: 11/07/17 19:13 TRAVEL OUTSIDE OF THE [place] IN LAST 30 DAYS: No - HPI Patient complains to provider of: Urinary frequency and pressure Notes: Patient coming for urinary frequency and pressure. Patient states she is partially 20 weeks with her eighth . Patient states dysuria pressure feeling that she has a urinary tract infection. Patient denies any fevers chills nausea vomiting vaginal bleeding. 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 Psychiatric Medical History: Reports: Hx Bipolar Disorder, Hx Depression Past Surgical History: Reports: Hx Orthopedic Surgery - Femur is replaced - Immunizations Immunizations up to date: Yes Hx Diphtheria, Pertussis, Tetanus Vaccination: Yes Review of Systems - Review of Systems Constitutional: No symptoms reported EENT: No symptoms reported Cardiovascular: No symptoms reported Respiratory: No symptoms reported Gastrointestinal: No symptoms reported Genitourinary: Dysuria, Frequency, Urgency Female Genitourinary: No symptoms reported Musculoskeletal: No symptoms reported Skin: No symptoms reported Hematologic/Lymphatic: No symptoms reported Neurological/Psychological: No symptoms reported -: Yes All other systems reviewed and negative Physical Exam - Vital signs Vitals: Temp Pulse Resp BP Pulse Ox 98.0 F 88 20 93/60 L 100 11/07/17 18:30 11/07/17 18:30 11/07/17 18:30 11/07/17 18:30 11/07/17 18:30 Interpretation: Normal - General General appearance: Appears well, Alert - HEENT Head: Normocephalic, Atraumatic Eyes: Normal Pupils: PERRL - Respiratory Respiratory status: No respiratory distress Chest status: Nontender Breath sounds: Normal Chest palpation: Normal - Cardiovascular Rhythm: Regular Heart sounds: Normal auscultation Murmur: No - Abdominal Inspection: Gravid female Distension: No distension Bowel sounds: Normal Tenderness: Nontender Organomegaly: No organomegaly - Back Back: Normal, Nontender - Extremities General upper extremity: Normal inspection, Nontender, Normal color, Normal ROM , Normal temperature General lower extremity: Normal inspection, Nontender, Normal color, Normal ROM , Normal temperature, Normal weight bearing. No: Ronny's sign - Neurological Neuro grossly intact: Yes Cognition: Normal Orientation: AAOx4 B[place]ford Coma Scale Eye Opening: Spontaneous [place] Coma Scale Verbal: Oriented [place] Coma Scale Motor: Obeys Commands B[place] Coma Scale Total: 15 Speech: Normal Motor strength normal: LUE, RUE, LLE, RLE Sensory: Normal - Psychological Associated symptoms: Normal affect, Normal mood - Skin Skin Temperature: Warm Skin Moisture: Dry Skin Color: Normal Course - Re-evaluation Re-evalutation: 11/07/17 20:46 Patient says signs of a complicated UTI. We will start the patient on Keflex. Bedside ultrasound shows positive motion with good cardiac activity. Patient stated Tylenol for pain control recommend follow-up with [facility]. Urine culture was sent. - Vital Signs Vital signs: Temp Pulse Resp BP Pulse Ox 98.0 F 74 16 105/60 100 11/07/17 19:45 11/07/17 19:45 11/07/17 19:45 11/07/17 19:45 11/07/17 19:45 - Laboratory Laboratory results interpreted by me: 11/07/17 19:00 Urine Protein 30 H Urine Blood SMALL H Ur Leukocyte Esterase MODERATE H Urine HCG, Qual POSITIVE H Discharge - Discharge Clinical Impression: UTI (urinary tract infection) Qualifiers: Urinary tract infection type: acute cystitis Hematuria presence: without hematuria Qualified Code(s): N30.00 - Acute cystitis without hematuria Qualifiers: Weeks of gestation: 20 weeks Qualified Code(s): Z3A.20 - 20 weeks gestation of Condition: Good Disposition: HOME, SELF-CARE Instructions: Cephalexin ([facility]), Urinary Tract Infection ([facility]) Additional Instructions: Your urinalysis today shows signs of infection. Please take antibiotics as prescribed. Return to ER symptoms worsen. Follow-up with your [facility] as scheduled. Would recommend taking Tylenol for any pain. Ultrasound shows healthy baby at this time. Positive motion with a good heart rate. Prescriptions: Cephalexin Monohydrate [Keflex 500 mg Capsule] 500 mg PO Q6H 7 Days capsule
[2017-11-07 19:47] VITALS: BP 105/60
== END 2017-11-07 19:47 | disposition home or self-care (01) ==
LOC: ER 18:24
DX: O23.12 Infections of bladder in pregnancy, second trimester (principal); O99.332 Smoking (tobacco) complicating pregnancy, second trimester; Z3A.20 20 weeks gestation of pregnancy
CPT/HCPCS: 81001; 81025; 87086; 87088; 87186; 99283

== ENCOUNTER 2017-11-28 04:10 | Emergency (ER) | payer SELFPAY ==
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
[2017-11-28 05:15] LABS: APPEARANCE,URINE SLIGHTLY-CLOUDY; BILIRUBIN,URINE NEGATIVE (NEGATIVE); COLOR,URINE YELLOW; GLUCOSE, URINE NEGATIVE (NEGATIVE); KETONES,URINE NEGATIVE (NEGATIVE); LEUKOCYTE ESTERASE,URINE MODERATE (NEGATIVE); NITRITE,URINE NEGATIVE (NEGATIVE); PROTEIN,URINE NEGATIVE (NEGATIVE); URINE SPECIFIC GRAVITY 1.023; UROBILINOGEN,URINE NEGATIVE mg/dL (<2.0)
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
[2017-11-28 06:13] VITALS: BP 98/48
== END 2017-11-28 06:17 | disposition home or self-care (01) ==
LOC: ER 04:10
DX: O9A.312 Physical abuse complicating pregnancy, second trimester (principal); Y07.03 Male partner, perpetrator of maltreatment and neglect; O99.332 Smoking (tobacco) complicating pregnancy, second trimester; F17.210 Nicotine dependence, cigarettes, uncomplicated; Z3A.23 23 weeks gestation of pregnancy
CPT/HCPCS: 76815; 81001; 99284

== ENCOUNTER → 2017-12-19 | Outpatient (CLI) | payer MEDICAID ==
--- NOTE | 2017-12-19 15:11 | RADIOLOGY REPORT (SQ) ---
EXAM DESCRIPTION: U/S OB 14+ TRNABD 1GES W/O DOP COMPLETED DATE/TIME: 12/19/2017 2:38 pm REASON FOR STUDY: Z34.82 ENCOUNTER FOR SUPRVSN OF NORMAL , SECOND TRIMESTER Z34.82 ENCOUNT ER FOR SUPRVSN OF NORMAL , SECOND TRI COMPARISON: 11/28/2017 TECHNIQUE: Static and Dynamic grayscale imaging performed of gravid uterus using transabdominal appr oach. Additional selected color Doppler and spectral images recorded. All stored on PACS. LIMITATIONS: None. FINDINGS: FETUSES SEEN:1 EGA: 25 weeks 3 days Calculated using BPD,FL,HC,AC documented on images. Patient is unsure of last m enstrual period. JASPREET: 03/31/2018 EFW: 813 grams PERCENTILE: 13th percentile CALVIN: Adequate, largest pocket 4.8 cm PLACENTA: Posterior grade 1 PRESENTATION: Breech ANATOMY: HEART RATE: 153 beats per minute. FOUR CHAMBER HEART: Visualized. THREE VESSEL CORD: Yes. CORD INSERTION: Visualized. KIDNEYS AND BLADDER: Visualized. Appear normal. STOMACH: Visualized. Appears normal. SPINE: Normal as visualized. BRAIN AND LATERAL VENTRICLES: Visualized. Appear normal. OTHER: No other significant finding. MATERNAL ADNEXA: Maternal ovaries not visualized. CERVICAL LENGTH: Cervix 3.4 cm in length Closed. OTHER: No other significant finding. IMPRESSION: LIVING INTRAUTERINE . ESTIMATED GESTATIONAL AGE 25 weeks 3 days by multiple measurements. NO VISUALIZED ANOMALIES. Trimester of : Second trimester - 13 weeks 1 day to 27 weeks 6 days. TECHNICAL DOCUMENTATION: JOB ID: [id number] [employer]- All Rights Reserved Reading location - IP/workstation name: [email or web address]
== END ==
LOC: RAD 15:39
PROVIDERS: ATTEND Nurse Practitioner
DX: Z34.82 Encounter for supervision of other normal pregnancy, second trimester (principal)
CPT/HCPCS: 76805

== ENCOUNTER 2018-08-25 16:33 | Emergency (ER) | payer SELFPAY ==
[2018-08-25] MEDS ORDERED: MECLIZINE HCL 25 MG TABLET PO ONE (20:00)
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
--- NOTE | 2018-08-25 20:33 | RADIOLOGY REPORT (SQ) ---
EXAM DESCRIPTION: XR CHEST 2 VIEWS COMPLETED DATE/TME: 08/25/2018 20:00 CLINICAL HISTORY: cough COMPARISON: None FINDINGS: Cardiac silhouette is within normal limits. There is no focal parenchymal or pleural disease. There is no acute osseous process visualized. IMPRESSION: No evidence of acute cardiopulmonary disease.
[2018-08-26] MEDS ORDERED: IBUPROFEN 600 MG TABLET PO ONE (01:27)
[2018-08-26] MEDS ORDERED: BENZONATATE 100 MG CAPSULE PO ONE (01:27)
--- NOTE | 2018-08-26 01:31 | ER Document Report ---
ED General - General Chief Complaint: Dizziness Stated Complaint: SORE THROAT Time Seen by Provider: 08/25/18 19:55 Primary Care Provider: AARTI ELIZONDO APRN [Primary Care Provider] - Follow up as needed Notes: Patient is a 33-year-old female without chronic medical problems who presents with 2 days of cough, sore throat, pain to the bilateral ears and a sensation of intermittent dizziness. Patient states that she also feels like she might have a fever but has not recorded a fever at home. Patient states that symptoms are moderate to severe in nature, constant since onset. Not improved or worsened by anything. States that her niece with whom she has had contact has been sick with the exact same symptoms. Notes that she is had associated nausea and some loose stools. No focal abdominal pain. Has not seen her primary care doctor regarding today's concerns. TRAVEL OUTSIDE OF THE [place] 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 HENT: Positive for sore throat. Eyes: Negative for visual changes. Cardiovascular: Negative for chest pain. Respiratory: Negative for shortness of breath. Positive for cough Gastrointestinal: Negative for abdominal pain, vomiting or diarrhea. Genitourinary: Negative for dysuria. Musculoskeletal: Negative for back pain. Skin: Negative for rash. Neurological: Negative for headaches, weakness or numbness. 10 point ROS negative except as marked above and in HPI. Physical Exam - Vital signs Vitals: Temp Pulse Resp BP Pulse Ox 98.2 F 95 18 135/83 H 98 08/25/18 16:43 08/25/18 16:43 06/10/19 16:43 08/25/18 16:43 08/25/18 16:43 Interpretation: Normal Notes: PHYSICAL EXAMINATION: GENERAL: Well-appearing, well-nourished and in no acute distress. HEAD: Atraumatic, normocephalic. EYES: Pupils equal round and reactive to light, extraocular movements intact, sclera anicteric, conjunctiva are normal. ENT: nares patent, palatal petechiae bilaterally, mild pus over the bilateral tonsils. Uvula is midline. Moist mucous membranes. TMs with serous effusions bilaterally NECK: Normal range of motion, bilateral anterior cervical lymphadenopathy more prominent on left versus right LUNGS: Breath sounds clear to auscultation bilaterally and equal. No wheezes rales or rhonchi. HEART: Regular rate and rhythm without murmurs ABDOMEN: Soft, nontender, normoactive bowel sounds. No guarding, no rebound. No masses appreciated. EXTREMITIES: Normal range of motion, no pitting or edema. No cyanosis. NEUROLOGICAL: No focal neurological deficits. Moves all extremities spontaneously and on command. PSYCH: Normal mood, normal affect. SKIN: Warm, Dry, normal turgor, no rashes or lesions noted. Course - Re-evaluation Re-evalutation: 08/26/18 01:27 Presentation is most consistent with a viral upper respiratory infection. Patient is overall well appearance, vitals within normal limits, well-hydrated. Patient denies any headache, neck pain, and has no evidence of meningismus on examination. Lungs are clear bilaterally. No evidence of respiratory distress. Based on clinical exam and history, I do not suspect an acute pneumonia, meningitis, strep pharyngitis, or an acute encephalitis. Rapid strep and chest x-ray are both noted to be normal. No further laboratory or imaging testing is indicated at this time. At this time will discharge with return precautions and follow-up recommendations. Verbal discharge instructions given a the bedside and opportunity for questions given. Medication warnings reviewed. Patient is in agreement with this plan and has verbalized understanding of return precautions and the need for primary care follow-up in the next 24-72 hours. - Vital Signs Vital signs: Temp Pulse Resp BP Pulse Ox 100.0 F 95 18 135/83 H 98 08/25/18 23:29 08/25/18 16:43 08/25/18 16:43 08/25/18 16:43 08/25/18 16:43 - Diagnostic Test Radiology reviewed: Image reviewed, Reports reviewed Radiology results interpreted by me: 08/26/18 01:28 Chest x-ray: No acute infiltrate or pneumothorax Discharge - Discharge Clinical Impression: Viral upper respiratory infection, Sore throat, Acute pain of both ears Condition: Good Disposition: HOME, SELF-CARE Additional Instructions: Your symptoms are most likely due to a viral infection it should resolve over the next 7-14 days. You should take [id number] guanfacine per bottle instructions to help thin the mucus. For nasal congestion: I would recommend that you get [id number] oxymetazoline also known is afrin. Use only per bottle instructions and be sure to never use this for more than 3 days if you can develop severe rebound congestion. You may also use tylenol or ibuprofen as needed for aches and thorat discomfort. Please be sure to drink plenty of fluids and get rest. Return to the emergency department he began having difficulty breathing, chest pain, persistent vomiting, or any other symptoms that are concerning to you. Referrals: AARTI ELIZONDO, FIBER MACHINE TENDER [Primary Care Provider] - Follow up as needed
[2018-08-26 02:39] VITALS: BP 119/72
== END 2018-08-26 02:38 | disposition home or self-care (01) ==
LOC: ER 16:33
DX: J06.9 Acute upper respiratory infection, unspecified (principal); B97.89 Other viral agents as the cause of diseases classified elsewhere; J02.9 Acute pharyngitis, unspecified; H92.03 Otalgia, bilateral; R42 Dizziness and giddiness; R05 Cough; R11.0 Nausea; R19.7 Diarrhea, unspecified
CPT/HCPCS: 71046; 87070; 87880; 99283

== ENCOUNTER 2018-09-06 10:33 | Emergency (ER) | payer SELFPAY ==
[2018-09-06] MEDS ORDERED: NORMAL SALINE 1000 ML 1,000 ML IV ONE (11:17)
--- NOTE | 2018-09-06 11:17 | ER Document Report ---
Addendum entered and electronically signed by SCOTT LYONS DO 09/07/18 12:11: Discharge - Discharge Clinical Impression: Suicidal ideations, Drug abuse, Polysubstance abuse, Cocaine abuse, Methamphetamine abuse Contusion of left foot Qualifiers: Encounter type: initial encounter Qualified Code(s): S90.32XA - Contusion of left foot, initial encounter Condition: Stable Disposition: HOME, SELF-CARE Additional Instructions: You have been evaluated by both medical and behavioral health providers while in the emergency department. You have been cleared from both acute medical and psychiatric services. You denied current thoughts or urges of suicidal ideation and self injurious behavior. You acknowledged a history of cutting as a negative coping skill. You admitted to this being a second relapse since January 2018. The drugs in your system are uppers and cause increased depression when coming down/sobering up. You noted being connected with [facility] which is felt to be an appropriate provider who can address dual diagnosis substance abuse and mental health. You are being linked to [facility] for voluntary substance abuse treatment linkage. Your foot is bruised not broken. You may use the Scott wrap for the next 3 to 4 days for comfort. You may take it off whenever you would like to. COCAINE ABUSE: Cocaine causes many dangerous medical problems. Problems can occur even with "usual" amounts. Cocaine affects judgement, creating a sense of invulnerability. Cocaine users often make bad decisions that seem "great" at the time. Most cocaine users eventually will be hurt by bad job performance, damaged personal relations, crime, and unsafe sexual practices. Toxic effects of cocaine can include seizures, hallucinations, delusions, high blood pressure, heart damage, or sudden . There's always the risk of a "bad batch." But heart attacks, brain hemorrhages, or cardiac arrest can occur unpredictably even with "normal" use. Injection of cocaine is risky for abscesses, endocarditis (heart infection), pneumonia, and AIDS. Withdrawal from cocaine often causes anxiety and drug cravings. Some users become paranoid and psychotic. Many treatment programs are available, but you must make the decision to quit. Medication can be prescribed to control the symptoms of cocaine toxicity (beta blockers or benzodiazepines). Withdrawal symptoms may require tranquilizers. AMPHETAMINE / METHAMPHETAMINE ABUSE: Amphetamines are addicting stimulants. Amphetamines overstimulate the nervous system and give a false feeling of power and mastery. These drugs may be obtained as prescription pills for weight loss, narcolepsy, or attention-deficit disorder. More often they're bought as an illegal street drug, methamphetamine (crank, crystal, speed). Using amphetamines repeatedly can lead to serious medical problems including malnutrition, severe depression, and paranoia. It can take increasing amounts to feel good. Eventually, there will be a "burn out." When you go off amphetamines there is a period of depression that may last for weeks or even months. High doses of amphetamines can cause seizures, confusion, hallucinations, delusions, high blood pressure, muscle damage, heart damage, or sudden . Many times these deadly complications occur even with "normal" doses. Injection of amphetamines is risky for developing abscesses, endocarditis (heart infection), pneumonia, and AIDS. Withdrawal from amphetamines often causes anxiety, depression, and drug cravings. Some users become paranoid and psychotic. There may be cramps, nausea, and vomiting. Many treatment programs are available, but you must make the decision to quit. Medication can be prescribed to control the symptoms of amphetamine toxicity (beta blockers or benzodiazepines). Withdrawal symptoms may require tranquilizers. DEPRESSION: Your evaluation reveals that you have mental depression. While symptoms may be vague, they often include disturbance of sleep, fatigue, loss of appetite, and general loss of interest in life. While depression may be a side effect of drugs, or a reaction to a major change in your life, many cases have no known cause. If depression is acute, and related to a major loss in your life, you can expect it to clear completely with time. If you have been depressed a long time , are prone to repeated bouts of depression or low mood, or have been thinking of suicide, get help. Depression can be treated with anti-depressant medication and counselling. Long-term depression will often take a few weeks to clear, even with appropriate medication. Follow-up care is important. SUICIDAL IDEATION: (self injurious behavior is similar without intent of wanting to or kill self) Suicidal ideation is a common medical term for thoughts about suicide, which may be as detailed as a formulated plan, without the suicidal act itself. Although most people who undergo suicidal ideation do not commit suicide, some go on to make suicide attempts. The range of suicidal ideation varies greatly from fleeting to detailed planning, role playing, and unsuccessful attempts. While thoughts about suicide are common, most people do not carry out serious actions to commit suicide. Based upon your evaluation and discussion with you, we do not believe you are currently at risk to act upon your thoughts of suicide. You have agreed to return to the Emergency Department, at any time, if you feel inclined to act upon your suicidal thoughts. FOLLOW-UP CARE: You have been linked up with [facility] for voluntary detoxification/substance abuse treatment. They are going to meet you in the lobby at discharge. You stated you have a follow up appointment at [facility] on 09/16/18. If you are not in any other treatment during that time you should attend that appointment for initiation of mental health and substance abuse services. You have been provided [facility] Crisis Number. If you experience worsening or a significant change in your symptoms, notify the physician immediately, utilize mobile crisis or return to the Emergency Department at any time for re-evaluation. Referrals: [facility] Crisis Team [Outside] - 09/07/18 [facility] [Outside] - 09/16/18 Addendum entered and electronically signed by DANIELLE COWAN LPC 09/07/18 11:52: Discharge - Discharge Clinical Impression: Suicidal ideations, Drug abuse, Polysubstance abuse, Cocaine abuse, Methamphetamine abuse Condition: Stable Disposition: HOME, SELF-CARE Additional Instructions: You have been evaluated by both medical and behavioral health providers while in the emergency department. You have been cleared from both acute medical and p sychiatric services. You denied current thoughts or urges of suicidal ideation and self injurious behavior. You acknowledged a history of cutting as a negative coping skill. You admitted to this being a second relapse since January 2018. The drugs in your system are uppers and cause increased depression when coming down/sobering up. You noted being connected with [facility] which is felt to be an appropriate provider who can address dual diagnosis substance abuse and mental health. You are being linked to [facility] for voluntary substance abuse treatment linkage. COCAINE ABUSE: Cocaine causes many dangerous medical problems. Problems can occur even with "usual" amounts. Cocaine affects judgement, creating a sense of invulnerability. Cocaine users often make bad decisions that seem "great" at the time. Most cocaine users eventually will be hurt by bad job performance, damaged personal relations, crime, and unsafe sexual practices. Toxic effects of cocaine can include seizures, hallucinations, delusions, high blood pressure, heart damage, or sudden . There's always the risk of a "bad batch." But heart attacks, brain hemorrhages, or cardiac arrest can occur unpredictably even with "normal" use. Injection of cocaine is risky for abscesses, endocarditis (heart infection), pneumonia, and AIDS. Withdrawal from cocaine often causes anxiety and drug cravings. Some users become paranoid and psychotic. Many treatment programs are available, but you must make the decision to quit. Medication can be prescribed to control the symptoms of cocaine toxicity (beta blockers or benzodiazepines). Withdrawal symptoms may require tranquilizers. AMPHETAMINE / METHAMPHETAMINE ABUSE: Amphetamines are addicting stimulants. Amphetamines overstimulate the nervous system and give a false feeling of power and mastery. These drugs may be obtained as prescription pills for weight loss, narcolepsy, or attention-deficit disorder. More often they're bought as an illegal street drug, methamphetamine (crank, crystal, speed). Using amphetamines repeatedly can lead to serious medical problems including malnutrition, severe depression, and paranoia. It can take increasing amounts to feel good. Eventually, there will be a "burn out." When you go off amphetamines there is a period of depression that may last for weeks or even months. High doses of amphetamines can cause seizures, confusion, hallucinations, delusions, high blood pressure, muscle damage, heart damage, or sudden . Many times these deadly complications occur even with "normal" doses. Injection of amphetamines is risky for developing abscesses, endocarditis (heart infection), pneumonia, and AIDS. Withdrawal from amphetamines often causes anxiety, depression, and drug cravings. Some users become paranoid and psychotic. There may be cramps, nausea, and vomiting. Many treatment programs are available, but you must make the decision to quit. Medication can be prescribed to control the symptoms of amphetamine toxicity (beta blockers or benzodiazepines). Withdrawal symptoms may require t ranquilizers. DEPRESSION: Your evaluation reveals that you have mental depression. While symptoms may be vague, they often include disturbance of sleep, fatigue, loss of appetite, and general loss of interest in life. While depression may be a side effect of drugs, or a reaction to a major change in your life, many cases have no known cause. If depression is acute, and related to a major loss in your life, you can expect it to clear completely with time. If you have been depressed a long time, are prone to repeated bouts of depression or low mood, or have been thinking of suicide, get help. Depression can be treated with anti-depressant medication and counselling. Long-term depression will often take a few weeks to clear, even with appropriate medication. Follow-up care is important. SUICIDAL IDEATION: (self injurious behavior is similar without intent of wanting to or kill self) Suicidal ideation is a common medical term for thoughts about suicide, which may be as detailed as a formulated plan, without the suicidal act itself. Although most people who undergo suicidal ideation do not commit suicide, some go on to make suicide attempts. The range of suicidal ideation varies greatly from fleeting to detailed planning, role playing, and unsuccessful attempts. While thoughts about suicide are common, most people do not carry out geraldine us actions to commit suicide. Based upon your evaluation and discussion with you, we do not believe you are currently at risk to act upon your thoughts of suicide. You have agreed to return to the Emergency Department, at any time, if you feel inclined to act upon your suicidal thoughts. FOLLOW-UP CARE: You have been linked up with [facility] for voluntary detoxification/substance abuse treatment. They are going to meet you in the lobby at discharge. You stated you have a follow up appointment at [facility] on 09/16/18. If you are not in any other treatment during that time you should attend that appointment for initiation of mental health and substance abuse services. You have been provided [facility] Number. If you experience worsening or a significant change in your symptoms, notify the physician immediately, utilize mobile crisis or return to the Emergency Department at any time for re-evaluation. Referrals: [facility] [Outside] - 09/16/18 [facility] [Outside] - 09/07/18 Original Note: ED Psych Disorder / Suicide - General Chief Complaint: Suicidal Ideation Stated Complaint: SUDICIAL IDEATION Time Seen by Provider: 09/06/18 10:55 Information source: Patient Notes: 33-year-old female with a long history of depression who presents today with suicidal ideations. She states she was going to cut herself with a knife. Long history of cutting. Patient is supposedly having disagreements with her boyfriend lives in [facility]. Patient states since 11 PM last night she has taken heroin, cocaine, methamphetamine, drank 9 beers. Patient denies any pain to any particular location. She denies any auditory visual hallucinations. Patient supposedly has 8 kids and has custody of none of these. TRAVEL OUTSIDE OF THE [place] 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 denies: Rash Neurological/Psychological: Other - no slurred speech -: Yes All other systems reviewed and negative Physical Exam - Vital signs Vitals: Pulse Resp BP Pulse Ox 118 H 16 128/100 H 97 09/06/18 10:56 09/06/18 10:56 09/06/18 10:56 09/06/18 10:56 Notes: Reviewed vital signs and nursing note as charted by RN. CONSTITUTIONAL: Alert and oriented; tearful and agitated HEAD: Normocephalic; atraumatic EYES: PERRL; Conjunctivae clear, no nystagmus; sclerae non-icteric ENT: Normal nose; no rhinorrhea; moist mucous membranes; pharynx without lesions noted NECK: Supple without meningismus; non-tender; no cervical lymphadenopathy, no masses CARD: R tachycardic and regular; no murmurs; symmetric distal pulses RESP: Normal chest excursion without splinting or tachypnea; breath sounds clear and equal bilaterally; no wheezes, no rhonchi, no rales ABD/GI: Normal bowel sounds; non-distended; soft, non-tender BACK: The back appears normal and is non-tender to palpation EXT: Normal ROM in all joints; non-tender to palpation; no edema SKIN: No acute lesions noted NEURO: CN 2-12 intact; 5/5 bilateral upper and lower extremity strength with sensation intact to light touch PSYCH: Patient is tearful Course - Re-evaluation Re-evalutation: 09/06/18 11:16 Given the above history and physical we will order a psychiatric laboratory profile including a urine test, EKG, and a behavioral health consult. Patient did not cut herself. She denies any auditory visual hallucinations. Multiple drug ingestions and the patient is slightly tachycardic. We will monitor closely. 09/06/18 11:56 EKG shows a heart rate of 77, normal sinus rhythm, normal axis, no ST elevation or depression. Given the likelihood of multiple ingestions/intoxication, we have signed a 24- hour petition to hold the patient in the emergency department for further psychiatric evaluation. 09/06/18 15:52 Labs as recorded. Urine culture has been sent. Diflucan has been provided. P atient has no dysuria. Patient has no history of diabetes. No elevated glucose on labs. - Vital Signs Vital signs: Temp Pulse Resp BP Pulse Ox 118 H 16 128/100 H 97 09/06/18 10:56 09/06/18 10:56 09/06/18 10:56 09/06/18 10:56 - Laboratory Result Diagrams: 09/06/18 13:55 09/06/18 13:55 Laboratory results interpreted by me: 09/06/18 09/06/18 12:23 13:55 Chloride 109 H Urine Ketones 20 H Ur Leukocyte Esterase TRACE H Salicylates < 1.0 L Acetaminophen < 10 L Discharge - Discharge Clinical Impression: Suicidal ideations, Drug abuse Condition: Fair Disposition: PSYCH HOSP/UNIT
--- NOTE | 2018-09-06 12:11 | EKG REPORT ---
SEVERITY:- NORMAL ECG - SINUS RHYTHM : Confirmed by: Irina Landry MD 06-Sep-2018 12:10:47
[2018-09-06 13:18] LABS: APPEARANCE,URINE CLOUDY; BILIRUBIN,URINE NEGATIVE (NEGATIVE); COLOR,URINE AMBER; GLUCOSE, URINE NEGATIVE (NEGATIVE); KETONES,URINE 20 mg/dL (NEGATIVE); LEUKOCYTE ESTERASE,URINE TRACE (NEGATIVE); NITRITE,URINE NEGATIVE (NEGATIVE); PROTEIN,URINE NEGATIVE (NEGATIVE); URINE SPECIFIC GRAVITY 1.026; UROBILINOGEN,URINE NEGATIVE mg/dL (<2.0)
[2018-09-06 13:29] LABS: URINE BARBITURATES SCREEN NEGATIVE; URINE BENZODIAZEPINES SCREEN NEGATIVE; URINE COCAINE SCREEN UNCONFIRMED POSITIVE; URINE MARIJUANA (THC) SCREEN NEGATIVE; URINE METHADONE SCREEN NEGATIVE; URINE PHENCYCLIDINE SCREEN NEGATIVE
[2018-09-06 14:33] LABS: ALANINE AMINOTRANSFERASE 22 U/L (9-52); ALBUMIN 4.1 g/dL (3.5-5.0); ALKALINE PHOSPHATASE 75 U/L (38-126); ANION GAP 9 (5-19); ASPARTATE AMINO TRANSFERASE 18 U/L (14-36); BILIRUBIN,DIRECT 0.2 mg/dL (0.0-0.4); BLOOD UREA NITROGEN 10 mg/dL (7-20); CALCIUM 9.3 mg/dL (8.4-10.2); CARBON DIOXIDE 22 mmol/L (22-30); CHLORIDE 109 mmol/L (98-107); GLUCOSE 79 mg/dL (75-110); POTASSIUM 3.9 mmol/L (3.6-5.0); SODIUM 140.1 mmol/L (137-145); TOTAL PROTEIN 6.6 g/dL (6.3-8.2)
[2018-09-06 14:42] LABS: ACETAMINOPHEN < 10 ug/mL (10-30); ALCOHOL < 10 mg/dL (NONE DETECTED); SALICYLATE < 1.0 mg/dL (2.0-20.0)
[2018-09-06 14:51] LABS: ABSOLUTE BASOPHILS # (AUTO) 0.1 10^3/uL (0.0-0.2); ABSOLUTE EOSINOPHILS # (AUTO) 0.1 10^3/uL (0.0-0.6); ABSOLUTE LYMPHOCYTES (AUTO) 1.6 10^3/uL (0.5-4.7); ABSOLUTE MONOCYTES (AUTO) 0.6 10^3/uL (0.1-1.4); ABSOLUTE NEUT (AUTO) 5.9 10^3/uL (1.7-8.2); BASOPHILS % (AUTO) 0.8 % (0-2); EOSINOPHILS % (AUTO) 0.6 % (0-6); HEMATOCRIT 38.6 % (36.0-47.0); HEMOGLOBIN 13.2 g/dL (12.0-15.5); LYMPHOCYTES % (AUTO) 19.3 % (13-45); MEAN CORPUSCULAR HGB CONC 34.2 g/dL (32.0-36.0); MEAN CORPUSCULAR VOLUME 88 fl (80-97); MONOCYTES % (AUTO) 7.2 % (3-13); PLATELET COUNT 219 10^3/uL (150-450); RED BLOOD COUNT 4.39 10^6/uL (3.72-5.28); RED CELL DISTRIBUTION WIDTH 12.3 % (11.5-14.0); SEGMENTED NEUTROPHILS % (AUTO) 72.1 % (42-78); TOTAL CELLS COUNTED % (AUTO) 100 %; WHITE BLOOD COUNT 8.1 10^3/uL (4.0-10.5)
[2018-09-06] MEDS ORDERED: FLUCONAZOLE 100 MG TABLET PO ONE (15:51)
--- NOTE | 2018-09-06 16:19 | PSYCHOLOGICAL NOTE ---
Psych Note - Psych Note Date seen by psych provider: 09/06/18 Time seen by psych provider: 11:20 Psych Note: Reason for Consult: Suicidal ideation 33-year-old female with a long history of depression who presents today with suicidal ideations. She states she was going to cut herself with a knife. Patient is alert and orientated to person, place, time and circumstance. Mood is euthymic with congruent as evidenced by smiling engaging with clinician. Patient reports suicidal ideation with a plan of cutting. Patient confirms she has a long history of maladaptive coping skill of cutting. Patient denies homicidal ideation. Delusions are absent behaviors congruent with an intact reality based presentation i.e. organized linear thought process. Eye contact is fair. Conversational speech is within normal rate, tone and prosody. Intellectual abilities appear to be within the average range. Attention and concentration are fair. Insight, judgment, impulse control are impaired due to currently being under the influence. Borderline personality disorder per history provided by patient Substance abuse No medication recommendations at this time Impression\plan: Patient is recommended for [facility] petition for overnight mental health observation. Patient reports passive suicidal ideation i.e. no plans means or intent. Patient reports thoughts of cutting, patient does have a long history of this maladaptive coping skill. She is currently under the influence reports this is her second relapse since January. She identifies fighting with her boyfriend as her trigger and states that she has been asking her us customs and border officer if she could be sent to a inpatient substance abuse treatment program. Dr. Bhatia was consulted to care management of this patient; attending physicians in agreement with recommendations and disposition.
--- NOTE | 2018-09-07 09:44 | PSYCHOLOGICAL NOTE ---
Psych Note - Psych Note Date seen by psych provider: 09/07/18 Psych Note: Presenting Problem: SI with plan to cut wrist. Hx SIB as coping skill. Drug Relapse. UDS positive for methamphetamine and cocaine. Today patient denied thoughts and urges related to SI/SIB and said "I am better than yesterday.". She stated she has an appointment at [facility] 09/16/18. She stated she wished [facility] had inpatient and was made aware they do for detox. When asked about if she knew or used [facility] she said they are not helpful. She was made aware they would be the ones to assist with voluntary SA placement/treatment. Patient provided boyfriend, Will ([phone]), for collateral and to do plan of care with. No answer. Left voice mail with call back information. Tried calling twice. He returned call. Was made aware of plan of care. Tried calling patient's EC, Cindy aBe ([phone]), twice, both times not accepting phone calls at this time. Diagnosis: Borderline Personality Disorder per history provided by patient Polysubstance Use (patient reported 2nd relapse since January) Methamphetamine Use Disorder Cocaine Use Disorder Impression/Plan: Patient is cleared from acute psychiatric services. Recommendation to rescind 24 Hour IVC Petition. She denied current SI/HI, no SIB urges and said she wanted help. She provided boyfriend for collateral and plan of care. She stated she has an appointment with 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 Connected patient directly to [facility] for voluntary detox/SA treatment referrals, [facility] to meet patient at discharge in the lobby. Nneka with [facility] called saying someone would be in ED lobby in 30 minutes, she was provided a description of patient and patient made aware of time frame. Provided outpatient MH resource sheet which highlighted [facility] and [facility]. Patient's fighazala returned call so was made aware she had sought MH services, was being linked to [facility] and spoke to this clinician as well as patient separately via telephone. Consulted with Dr. Bhatia regarding the management and care of patient. ED Physician in agreement with recommendations.
--- NOTE | 2018-09-07 10:44 | RADIOLOGY REPORT (SQ) ---
EXAM DESCRIPTION: FOOT RIGHT COMPLETE COMPLETED DATE/TIME: 09/07/2018 10:36 am REASON FOR STUDY: hit foot with axe COMPARISON: None. NUMBER OF VIEWS: Three views. TECHNIQUE: AP, lateral and oblique radiographic images acquired of the right foot. LIMITATIONS: None. FINDINGS: MINERALIZATION: Normal. BONES: No acute fracture or dislocation. No worrisome bone lesions. JOINTS: No effusions. SOFT TISSUES: No soft tissue swelling. No foreign body. OTHER: No other significant finding. IMPRESSION: NEGATIVE STUDY OF THE RIGHT FOOT. NO RADIOGRAPHIC EVIDENCE OF ACUTE INJURY. TECHNICAL DOCUMENTATION: JOB ID: [id number] [employer]- All Rights Reserved Reading location - IP/workstation name: [email or web address]
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
[2018-09-07 12:35] VITALS: BP 96/64
== END 2018-09-07 12:34 | disposition home or self-care (01) ==
LOC: ER 10:33 → EEVIPCON 10:33 → ER 09-07 12:34
DX: R45.851 Suicidal ideations (principal); S90.32XA Contusion of left foot, initial encounter; W22.8XXA Striking against or struck by other objects, initial encounter; F14.10 Cocaine abuse, uncomplicated; F15.10 Other stimulant abuse, uncomplicated; F32.9 Major depressive disorder, single episode, unspecified; F17.200 Nicotine dependence, unspecified, uncomplicated; Z85.41 Personal history of malignant neoplasm of cervix uteri
CPT/HCPCS: 93005; 99285; 36415; 87086; 80307 ×4; 85025; 81025; 80053; 81001; 73630; 93010; J7030

== ENCOUNTER 2019-02-16 09:01 | Emergency (ER) | payer SELFPAY ==
[2019-02-16 09:48] LABS: ABSOLUTE MONOCYTES (AUTO) 0.6 10^3/uL (0.1-1.4); ABSOLUTE NEUT (AUTO) 6.2 10^3/uL (1.7-8.2); BASOPHILS % (AUTO) 0.6 % (0-2); EOSINOPHILS % (AUTO) 0.2 % (0-6); HEMATOCRIT 42.4 % (36.0-47.0); HEMOGLOBIN 14.5 g/dL (12.0-15.5); LYMPHOCYTES % (AUTO) 12.8 % (13-45); MEAN CORPUSCULAR HEMOGLOBIN 28.9 pg (27.0-33.4); MEAN CORPUSCULAR HGB CONC 34.3 g/dL (32.0-36.0); MEAN CORPUSCULAR VOLUME 84 fl (80-97); PLATELET COUNT 256 10^3/uL (150-450); RED BLOOD COUNT 5.03 10^6/uL (3.72-5.28); RED CELL DISTRIBUTION WIDTH 13.7 % (11.5-14.0); SEGMENTED NEUTROPHILS % (AUTO) 78.4 % (42-78); TOTAL CELLS COUNTED % (AUTO) 100 %; WHITE BLOOD COUNT 7.9 10^3/uL (4.0-10.5)
[2019-02-16 09:51] LABS: APPEARANCE,URINE SLIGHTLY-CLOUDY; BILIRUBIN,URINE NEGATIVE (NEGATIVE); COLOR,URINE YELLOW; GLUCOSE, URINE NEGATIVE (NEGATIVE); KETONES,URINE 80 mg/dL (NEGATIVE); LEUKOCYTE ESTERASE,URINE NEGATIVE (NEGATIVE); NITRITE,URINE NEGATIVE (NEGATIVE); PROTEIN,URINE 30 mg/dL (NEGATIVE); URINE SPECIFIC GRAVITY 1.028; UROBILINOGEN,URINE NEGATIVE mg/dL (<2.0)
[2019-02-16 10:05] LABS: ALBUMIN 4.7 g/dL (3.5-5.0); ALKALINE PHOSPHATASE 103 U/L (38-126); ANION GAP 16 (5-19); ASPARTATE AMINO TRANSFERASE 22 U/L (14-36); BILIRUBIN,DIRECT 0.1 mg/dL (0.0-0.4); BILIRUBIN,TOTAL 0.8 mg/dL (0.2-1.3); BLOOD UREA NITROGEN 10 mg/dL (7-20); CALCIUM 9.8 mg/dL (8.4-10.2); CARBON DIOXIDE 22 mmol/L (22-30); CHLORIDE 103 mmol/L (98-107); GLUCOSE 103 mg/dL (75-110); POTASSIUM 3.6 mmol/L (3.6-5.0); TOTAL PROTEIN 8.2 g/dL (6.3-8.2)
[2019-02-16 10:08] LABS: URINE BARBITURATES SCREEN NEGATIVE; URINE BENZODIAZEPINES SCREEN NEGATIVE; URINE MARIJUANA (THC) SCREEN NEGATIVE; URINE METHADONE SCREEN NEGATIVE; URINE PHENCYCLIDINE SCREEN NEGATIVE
[2019-02-16 10:13] LABS: ACETAMINOPHEN < 10 ug/mL (10-30); ALCOHOL < 10 mg/dL (NONE DETECTED); SALICYLATE < 1.0 mg/dL (2.0-20.0)
[2019-02-16 10:14] LABS: URINE COCAINE SCREEN UNCONFIRMED POSITIVE
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
[2019-02-16 11:42] VITALS: BP 109/76
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
--- NOTE | 2019-02-16 15:07 | EKG REPORT ---
SEVERITY:- OTHERWISE NORMAL ECG - SINUS TACHYCARDIA : Confirmed by: Irina Landry MD 16-Feb-2019 15:06:45
== END 2019-02-16 13:27 | disposition home or self-care (01) ==
LOC: EEVIPCON 09:01 → ER 09:01
DX: F19.10 Other psychoactive substance abuse, uncomplicated (principal); F11.10 Opioid abuse, uncomplicated; R07.9 Chest pain, unspecified; R20.0 Anesthesia of skin; Y04.0XXA Assault by unarmed brawl or fight, initial encounter; F17.200 Nicotine dependence, unspecified, uncomplicated
CPT/HCPCS: 36415; 80053; 80307; 81001; 84703; 85025; 93005; 93010; 99285

== ENCOUNTER 2019-02-18 07:50 | Emergency (ER) | payer SELFPAY ==
[2019-02-18 07:55] VITALS: BP 117/73
[2019-02-18] MEDS ORDERED: IPRATROPIUM/ALBUTEROL 0.5-2.5 MG/3 ML AMPUL NEB ONE (09:08)
[2019-02-18] MEDS ORDERED: LIDOCAINE 1% INJ-PF (10 MG/ML) 30 ML SDV NEB ONE (09:08)
--- NOTE | 2019-02-18 10:46 | RADIOLOGY REPORT (SQ) ---
EXAM DESCRIPTION: CHEST 2 VIEWS COMPLETED DATE/TIME: 02/18/2019 10:21 am REASON FOR STUDY: SOB COMPARISON: PA and lateral views of the chest from 08/25/2018. EXAM PARAMETERS: NUMBER OF VIEWS: two views TECHNIQUE: PA and lateral views of the chest were obtained. RADIATION DOSE: NA LIMITATIONS: none FINDINGS: LUNGS AND PLEURA: No consolidation, pleural effusion or pneumothorax. MEDIASTINUM AND HILAR STRUCTURES: No mediastinal or hilar contour abnormality. HEART AND VASCULAR STRUCTURES: The cardiac silhouette and pulmonary vasculature are within normal [place] its. BONES: No acute findings. HARDWARE: None in the chest. OTHER: No other finding. IMPRESSION: No acute cardiopulmonary process. TECHNICAL DOCUMENTATION: JOB ID: [id number] [email or web address]- All Rights Reserved Reading location - IP/workstation name: [email or web address]
--- NOTE | 2019-02-18 11:30 | ER Document Report ---
Entered by BRANDI RON SCRIBE 02/18/19 0849 Acting as scribe for:JEISON SHANNON MD ED General - General Chief Complaint: Cold Symptoms Stated Complaint: COLD SYMPTOMS Time Seen by Provider: 02/18/19 08:32 Mode of Arrival: Ambulatory Information source: Patient, [facility] Records Notes: This 33 year old patient with a history of drug abuse presents to the ED today with complaints of coughing that began on the 08 of February. Patient states that she was seen here 2 days ago for an overdose and mentioned the cough to the provider at that time but was not given any medications for it. Her cough is nonproductive. TRAVEL OUTSIDE OF THE [place] IN LAST 30 DAYS: No - Related Data Allergies/Adverse Reactions: hydrocodone bitartrate [From Vicodin] Adverse Reaction (Mild, Verified 02/18/19 07:58) nausea and vomiting Home Medications: Rexalti Past Medical History - General Information source: Patient, [facility] Records - Social History Smoking Status: Current Some Day Smoker Cigarette use (# per day): Yes Chew tobacco use (# tins/day): No Frequency of alcohol use: None Drug Abuse: Cocaine, Methamphetamine, Prescription drugs Family History: Reviewed & Not Pertinent Patient has suicidal ideation: No Patient has homicidal ideation: No Malignancy Medical History: Reports: 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 Psychiatric Medical History: Reports: Hx Bipolar Disorder, Hx Depression Past Surgical History: Reports: Hx Orthopedic Surgery - Immunizations Immunizations up to date: Yes Hx Diphtheria, Pertussis, Tetanus Vaccination: Yes Review of Systems - Review of Systems Constitutional: No symptoms reported EENT: No symptoms reported Cardiovascular: No symptoms reported Respiratory: See HPI, Cough Gastrointestinal: No symptoms reported Genitourinary: No symptoms reported Female Genitourinary: No symptoms reported Musculoskeletal: No symptoms reported Skin: No symptoms reported Hematologic/Lymphatic: No symptoms reported Neurological/Psychological: No symptoms reported -: Yes All other systems reviewed and negative Physical Exam - Vital signs Vitals: Temp Pulse Resp BP Pulse Ox 97.7 F 95 20 117/73 96 02/18/19 07:53 02/18/19 07:53 02/18/19 07:53 02/18/19 07:53 02/18/19 07:53 Interpretation: Normal - General General appearance: Appears well, Alert, Other - hoarse voice In distress: None - HEENT Head: Normocephalic, Atraumatic Eyes: Normal Pupils: PERRL Tympanic membrane: Retracted Pharynx: Erythema. No: Exudate - Respiratory Respiratory status: No respiratory distress Chest status: Nontender Breath sounds: Nonproductive cough, Rhonchi, Wheezing Chest palpation: Normal - Cardiovascular Rhythm: Regular Heart sounds: Normal auscultation Murmur: No - Abdominal Inspection: Normal - Back Back: Normal, Nontender - Extremities General upper extremity: Normal inspection General lower extremity: Normal inspection - Neurological Neuro grossly intact: Yes - Psychological Associated symptoms: Normal affect, Normal mood - Skin Skin Temperature: Warm Skin Moisture: Dry Skin Color: Normal Course - Vital Signs Vital signs: Temp Pulse Resp BP Pulse Ox 97.7 F 95 20 117/73 96 02/18/19 07:59 02/18/19 07:59 02/18/19 07:59 02/18/19 07:59 02/18/19 07:59 Discharge - Discharge Clinical Impression: Viral upper respiratory tract infection with cough Condition: Stable Disposition: HOME, SELF-CARE Additional Instructions: Upper Respiratory Illness You have a viral infection of the respiratory passages -- a "cold." This common infection causes nasal congestion, drainage, and often sore throat and cough. It is caused by a virus and is highly contagious. The disease usually lasts a week or more, though the worst symptoms are usually over in 3 or 4 days. There is no "cure" for the viral infection -- it must run its course. If there is a complication, such as bacterial infection in the nose, sinuses, middle ear, or bronchial tubes, antibiotics may be required, but antibiotics won't affect the virus. If you smoke, you should STOP!! Drink plenty of fluids. A humidifier may help. An expectorant medication or decongestant may make you more comfortable. Use acetaminophen or ibuprofen for fever or aches. See the doctor if fever persists over two or three days, if there is any significant worsening of your symptoms, or if you simply fail to improve as expected. Take the medications as prescribed. Start the prednisone tomorrow--you have had today's dose here in the emergency room. Use the inhaler 2 puffs every 2-4 hours for wheezing if needed. Drink plenty of fluids throughout the day in the evening. Get plenty of rest. Follow-up with a local medical doctor if not improving. RETURN TO THE EMERGENCY ROOM IF ANY NEW OR WORSENING SYMPTOMS. Prescriptions: Prednisone [Deltasone 10 mg Tablet] 10 mg PO ASDIR PRN #21 tablet PRN Reason: Benzonatate [Tessalon Perles 100 mg Capsule] 100 mg PO ASDIR PRN #30 capsule PRN Reason: Scribe Attestation: 02/18/19 11:49 I personally performed the services described in the documentation, reviewed and edited the documentation which was dictated to the scribe in my presence, and it accurately records my words and actions. I personally performed the services described in the documentation, reviewed and edited the documentation which was dictated to the scribe in my presence, and it accurately records my words and actions.
[2019-02-18] MEDS ORDERED: ALBUTEROL SULFATE HFA (90 MCG/PUFF) 8 GM MDI (1 MDI/ER DISP) IH ONE (11:31)
[2019-02-18] MEDS ORDERED: ONDANSETRON 4 MG TAB.RAPDIS PO ONE (11:31)
[2019-02-18] MEDS ORDERED: PREDNISONE 20 MG TABLET PO ONE (11:31)
[2019-02-18] MEDS ORDERED: BENZONATATE 100 MG CAPSULE PO ONE (11:31)
== END 2019-02-18 12:07 | disposition home or self-care (01) ==
LOC: ER 07:50
DX: J06.9 Acute upper respiratory infection, unspecified (principal); B97.89 Other viral agents as the cause of diseases classified elsewhere; R05 Cough; F17.210 Nicotine dependence, cigarettes, uncomplicated; F14.10 Cocaine abuse, uncomplicated; F15.10 Other stimulant abuse, uncomplicated; R49.0 Dysphonia; R06.2 Wheezing
CPT/HCPCS: 94640; 99283; 87070; 87880; 71046; S0119; J3490 ×2; J7512; J7620

== ENCOUNTER 2019-12-10 09:46 | Inpatient (IN) | payer MEDICAID ==
[2019-12-10] MEDS ORDERED: LIDOCAINE 1% INJ-PF (10 MG/ML) 30 ML SDV ONE (09:57)
[2019-12-10] MEDS ORDERED: OXYTOCIN/0.9 % SODIUM CHLORIDE 30 UNIT/500 ML RTUINJ ONE (09:57)
[2019-12-10] MEDS ORDERED: OXYTOCIN 10 UNIT/ML VIAL ONE (09:57)
[2019-12-10] MEDS ORDERED: MISOPROSTOL 0.2 MG TABLET ONE (09:57)
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
[2019-12-10] MEDS ORDERED: RINGERS SOLUTION,LACTATED 1,000 ML IV ONE (10:26)
[2019-12-10] MEDS ORDERED: RINGERS SOLUTION,LACTATED 1,000 ML IV PRN (10:26)
[2019-12-10 11:02] LABS: ABSOLUTE EOSINOPHILS # (AUTO) 0.1 10^3/uL (0.0-0.6); ABSOLUTE LYMPHOCYTES (AUTO) 1.4 10^3/uL (0.5-4.7); ABSOLUTE MONOCYTES (AUTO) 0.5 10^3/uL (0.1-1.4); ABSOLUTE NEUT (AUTO) 7.1 10^3/uL (1.7-8.2); BASOPHILS % (AUTO) 0.4 % (0-2); EOSINOPHILS % (AUTO) 0.8 % (0-6); HEMATOCRIT 34.3 % (36.0-47.0); HEMOGLOBIN 12.1 g/dL (12.0-15.5); LYMPHOCYTES % (AUTO) 15.5 % (13-45); MEAN CORPUSCULAR HEMOGLOBIN 31.3 pg (27.0-33.4); MEAN CORPUSCULAR HGB CONC 35.3 g/dL (32.0-36.0); MEAN CORPUSCULAR VOLUME 89 fl (80-97); MONOCYTES % (AUTO) 5.3 % (3-13); PLATELET COUNT 146 10^3/uL (150-450); RED BLOOD COUNT 3.87 10^6/uL (3.72-5.28); RED CELL DISTRIBUTION WIDTH 13.6 % (11.5-14.0); TOTAL CELLS COUNTED % (AUTO) 100 %; WHITE BLOOD COUNT 9.1 10^3/uL (4.0-10.5)
[2019-12-10 11:29] LABS: APPEARANCE,URINE CLEAR; BILIRUBIN,URINE NEGATIVE (NEGATIVE); COLOR,URINE YELLOW; GLUCOSE, URINE NEGATIVE (NEGATIVE); KETONES,URINE NEGATIVE (NEGATIVE); LEUKOCYTE ESTERASE,URINE TRACE (NEGATIVE); NITRITE,URINE NEGATIVE (NEGATIVE); PROTEIN,URINE NEGATIVE (NEGATIVE); URINE SPECIFIC GRAVITY 1.014; UROBILINOGEN,URINE NEGATIVE mg/dL (<2.0)
[2019-12-10] MEDS ORDERED: DIPHENHYDRAMINE HCL 50 MG/ML VIAL ONE (11:40)
[2019-12-10] MEDS ORDERED: NALBUPHINE HCL INJ 10 MG/1 ML AMPULE ONE (11:46)
[2019-12-10 11:52] LABS: URINE AMPHETAMINES SCREEN NEGATIVE; URINE BARBITURATES SCREEN NEGATIVE; URINE BENZODIAZEPINES SCREEN NEGATIVE; URINE COCAINE SCREEN NEGATIVE; URINE MARIJUANA (THC) SCREEN NEGATIVE; URINE METHADONE SCREEN NEGATIVE; URINE PHENCYCLIDINE SCREEN NEGATIVE
[2019-12-10] MEDS ORDERED: DIPH/PERTUSS(ACELL)/TETANUS VAC/PF 0.5 ML SYR (>=10YO) IM PRN (12:29)
[2019-12-10] MEDS ORDERED: GLYCERIN/WITCH HAZEL LEAF 1 EACH MED..WIPE TP PRN (12:29)
[2019-12-10] MEDS ORDERED: ZOLPIDEM TARTRATE 5 MG TABLET PO PRN (12:29)
[2019-12-10] MEDS ORDERED: MAGNESIUM HYDROXIDE SUSP 30 ML UDCUP PO PRN (12:29)
[2019-12-10] MEDS ORDERED: ACETAMINOPHEN WITH CODEINE #3 TABLET PO PRN ×2 (12:29)
[2019-12-10] MEDS ORDERED: MEASLES,MUMPS&RUBELLA VACC/PF 0.5 ML VIAL SUBCUT PRN (12:29)
[2019-12-10] MEDS ORDERED: PROMETHAZINE HCL 25 MG SUPP.RECT PR PRN (12:29)
[2019-12-10] MEDS ORDERED: PROMETHAZINE HCL INJ 25 MG/1 ML VIAL IV PRN (12:29)
[2019-12-10] MEDS ORDERED: PROMETHAZINE HCL 25 MG TABLET PO PRN (12:29)
[2019-12-10] MEDS ORDERED: DIPHENHYDRAMINE HCL 25 MG CAPSULE PO PRN (12:29)
[2019-12-10] MEDS ORDERED: ACETAMINOPHEN 650 MG SUPP.RECT PR PRN (12:29)
[2019-12-10] MEDS ORDERED: PSEUDOEPHEDRINE HCL 30 MG TABLET PO PRN (12:29)
[2019-12-10] MEDS ORDERED: BENZOCAINE/MENTHOL AEROSOL SPRAY 56 ML TOP PRN (12:29)
[2019-12-10] MEDS ORDERED: NA PHOS,M-B/NA PHOS,DI-BA (ADULT) 133 ML ENEMA PR PRN (12:29)
[2019-12-10] MEDS ORDERED: DIBUCAINE 1% OINTMENT 28 GM TP PRN (12:29)
[2019-12-10] MEDS ORDERED: OXYTOCIN/0.9 % SODIUM CHLORIDE 30 UNIT/500 ML RTUINJ IV PRN (12:29)
[2019-12-10] MEDS ORDERED: VALACYCLOVIR HCL 500 MG TABLET PO SCH (13:00)
--- NOTE | 2019-12-10 14:48 | Delivery Summary ---
Del Sum A-C Datetime Report Generated by CPN: 12/10/2019 14:48 DELIVERY PERSONNEL DELIVERY PERSONNEL: [id number] Delivery Doctor:: Genny Worley CNM Labor and Delivery Nurse:: Michelel Atwood RNoperations dispatcher Nurse:: LUPILLO Huber Nursery Nurse:: Lucero Pro RN Testing Director/GEAR CHANGER: Nneka Meyer ST Testing Director/GEAR CHANGER: Lynnette Messina, CONCRETE TECHNICIAN MATERNAL INFORMATION Delivery Anesthesia: None Medications After Delivery: Pitocin 30 Units in 500ml NS/D5W Estimated Blood Loss (ml): 150 Delivery QBL: 150 Other Maternal Complications: cervical swelling Provider Comments: Called to room 5 as patient pushing involuntarily. Given Nubain within 10 mins of delivery. of vertex, then shoulder dystocia noted. Ashish, rotation of posterior shoulder, then suprapubic pressure with delivery of baby at 1210 after 1 min 10 sec dystocia. Apgars 9-9. Spontaneous respiration and cry. Dr Simmons arrived immediately after baby delivered and delivered placenta, Stokes. Perineum intact. FF at u-2. Lochia minimal. Patient not in control for delivery but tolerated procedure well. LABOR SUMMARY EDC: 12/02/2019 00:00 No. Babies in Womb: 1 Attempted: No Labor Anesthesia: IV Sedation LABOR INFORMATION Reason for Induction: Not Applicable Onset of Labor: 12/10/2019 05:00 Complete Dilatation: 12/10/2019 12:08 Oxytocin: N/A Group B Beta Strep: Negative Steroids Given: None Reason Steroids Not Administered: Not Applicable MEMBRANES Membranes Rupture Method: Spontaneous Rupture of Membranes: 12/10/2019 10:49 Length of Rupture (hr): 1.35 Amniotic Fluid Color: Light Meconium Amniotic Fluid Amount: Small Amniotic Fluid Odor: None STAGES OF LABOR Stage 1 hr: 7 Stage 1 min: 8 Stage 2 hr: 0 Stage 2 min: 2 Stage 3 hr: 0 Stage 3 min: 2 Total Time in Labor hr: 7 Total Time in Labor min: 12 VAGINAL DELIVERY Episiotomy: None Laceration #1: None Laceration Repair: Not Applicable Sponge Count Correct: N/A Sharps Count Correct: Yes CSECTION DELIVERY Primary Indication: N/A Secondary Indication: N/A CSection Incidence: N/A Labor: N/A Elective: N/A CSection Incision: N/A BABY A INFORMATION Delivery Date/Time: 12/10/2019 12:10 Method of Delivery: Vaginal Nurse Controlled Delivery: No Born in Route : No : N/A Forceps: N/A Vacuum Extraction: N/A Shoulder Dystocia : Yes SHOULDER DYSTOCIA BABY A Delivery of Head: 12/10/2019 12:09 Time Head to Delivery : 1.0 1st Intervention to Resolve: McRobert's Maneuver 2nd Intervention to Resolve: Suprapubic Pressure Verify NO Fundal Pressure: No Fundal Pressure Applied PRESENTATION/POSITION BABY A Presentation: Cephalic Cephalic Presentation: Vertex Vertex Position: Left Occipital Anterior Breech Presentation: N/A PLACENTA INFORMATION BABY A Placenta Delivery Time : 12/10/2019 12:12 Placenta Method of Delivery: Spontaneous Placenta Status: Delivered SCORES BABY A Heart Rate 1 min: >100 bpm Resp Effort 1 min: Slow, Irregular Reflex Irritability 1 min: Cough or Sneeze or Pulls Away Muscle Tone 1 min: Active Motion Color 1 min: Blue/Pale Resuscitation Effort 1 min: Tactile Stimulation SCORE 1 MIN: 7 Heart Rate 5 min: >100 bpm Resp Effort 5 min: Good Cry Reflex Irritability 5 min: Cough or Sneeze or Pulls Away Muscle Tone 5 min: Active Motion Color 5 min: Body Ruth, Extremities Blue SCORE 5 MIN: 9 INFORMATION BABY A Gestational Age at Delivery: 41.1 Gestational Status: Late Term- 41- 41.6 Weeks Infant Outcome : Liveborn Condition : Stable Sex: Male IDENTIFICATION BABY A Verification Date/Time: 12/10/2019 12:26 ID Band Number: [id number] Mother's Name Verified: Yes RN Verifying : Yossi Atwood RN Marshal Fowler RN CORD INFORMATION BABY A No. Cord Vessels: 3 Nuchal Cord : N/A BABY B INFORMATION : N/A SIGNATURES Assignment: Janeth Simmons MD Signature: with User ID: [email or web address] : with User ID: [email or web address] : I personally evaluated and examined the patient in conjunction with the P and agree with the assessment, treatment plan and disposition.
--- NOTE | 2019-12-10 14:48 | Birth Certificate Data ---
Cert Data Datetime Report Generated by [facility]: 12/10/2019 14:48 CERTIFICATE DATA 47a. Care: Yes (12/10/2019 09:48:Michelle Atwood RN) 47b. Date of First Visit: 07/15/2019 00:00 (12/10/2019 09:48:Michelle Atwood RN) 47c. Date of Last Visit: 12/04/2019 00:00 (12/10/2019 09:48:Michelle Atwood RN) 47d. Number of Visits: 11 (12/10/2019 09:48:Michelle Atwood RN) 48a. Number of Prev Live Births: 8 (12/10/2019 09:48:Qing JASSI Jane) 48b. Now Livin (12/10/2019 09:48:Michelle Atwood RN) 48c. Live Births Now : 0 (12/10/2019 09:48:QS system process) 48d. Date of Last Live : 04/05/2018 00:00 (12/10/2019 09:48:Michelle Rai, RN) 48e. Losses: 7 (12/10/2019 09:48:Michelle Atwood, RN) RISK FACTORS IN THIS 49c. Previous Births: 0 (12/10/2019 09:48:Qing Buck, RN) 49f. Previous Cesareans: 0 (12/10/2019 09:48:Qing Buck, RN) Mother's Height 50b. Height Inches: 67 (12/10/2019 14:40:QS system process) Mother's Weight 51a. Pre- Weight (lbs): 197 (12/10/2019 09:48:Michelle Atwood RN) 51b. Weight at Delivery (lbs): 207 (12/10/2019 10:26:QS system process) 52. Dt Last Normal Menses Began: 02/25/2019 00:00 (12/10/2019 09:48:Qing Jane RN) Infections Present/Treated Results this Hospital Visit : Negative (12/10/2019 09:48:Qing Jane RN) Results this Hospital Visit: Negative (12/10/2019 09:48:Qing Jane RN) Results this Hospital Visit: Negative (12/10/2019 09:48:Qing Jane RN) 53e. Hepatitis C: Negative (12/10/2019 09:48:Qing Jane RN) 53h. Mother Tested for HBsAG: Yes (12/10/2019 09:48:Qing Jane RN) 53i. Date Tested: 05/26/2019 00:00 (12/10/2019 09:48:Qing Jane RN) 53j. Test Result: Negative (12/10/2019 09:48:Qing Jane RN) Cigarette Smoking Cigarette Smoking: Current Some Day Smoker. [id number] (12/10/2019 09:48:Michelle Atwood RN) 55a. 3 Months Before Preg - Ci (12/10/2019 09:48:Michelle Atwood RN) 55b. 1st Trimester of Preg- Ci (12/10/2019 09:48:Michelle Atwood RN) 55c. 2nd Trimester of Preg- Ci (12/10/2019 09:48:Michelle Atwood RN) 55d. 3rd Trimester of Preg- Ci (12/10/2019 09:48:Michelle Atwood RN) Onset of Labor 56a. PROM >12 Hrs: 1.35 (12/10/2019 09:48:QS system process) 56b. Precipitous Labor <3 Hrs: 7 (12/10/2019 09:48:QS system process) 56c. Prolonged Labor > 20 Hrs: 7 (12/10/2019 09:48:QS system process) 57a. Induction of Labor: N/A (12/10/2019 09:48:Michelle Atwood RN) 57c. Non-Vertex Presentation A: Vertex (12/10/2019 09:48:Michelle Atwood RN) 57d. Steroids - Lung Mat: None (12/10/2019 09:48:Michelle Atwood RN) 57d. Steroids - Lung Mat: Not Applicable (12/10/2019 09:48:Michelle Atwood RN) 57g. Moderate/Heavy Meconium: Light Meconium (12/10/2019 10:49:Michelle Atwood RN) 57h. Intolerance of Labor: N/A (12/10/2019 09:48:Michelle Atwood RN) : N/A (12/10/2019 09:48:Michelle Atwood RN) 57i. Epidural/Spinal Anesthesia: IV Sedation (12/10/2019 09:48:Michelle Atwood RN) Method of Delivery 58a. Forceps - Unsuccessful A: N/A (12/10/2019 09:48:Michelle Atwood RN) 58b. Vacuum - Unsuccessful A: N/A (12/10/2019 09:48:Michelle Atwood RN) 58c. Presentation at 58c. Presentation at - A : Vertex (12/10/2019 09:48:Michelle Atwood RN) 58c. Presentation at - A : N/A (12/10/2019 09:48:Michelle Atwood RN) 58c. Presentation at - A : Cephalic (12/10/2019 09:48:Michelle Atwood RN) Final Route and Method of Del 58d. Baby A Route/Delivery: Vaginal (12/10/2019 12:10:Michelle Atwood RN) 58e. Trial of Labor Attempted: No (12/10/2019 09:48:Michelle Atwood RN) 58e. Trial of Labor Attempted A: N/A (12/10/2019 09:48:Michelle Atwood RN) 58e. Trial of Labor Attempted B: N/A (12/10/2019 09:48:Michelle Atwood RN) Maternal Morbidity 59b. 3rd or 4th Degree Lacs: None (12/10/2019 09:48:Gennyyandy Worley, CNM) 61. GA at Delivery Baby A: 41.1 (12/10/2019 09:48:Michelle Atwood RN) : Late Term- 41- 41.6 Weeks (12/10/2019 09:48:QS system process) 62a. 5 Minute Baby A: 9 (12/10/2019 09:48:QS system process)
[2019-12-10] MEDS: DOCUSATE SODIUM 100 MG CAPSULE PO SCH (18:12)
[2019-12-10] MEDS: VALACYCLOVIR HCL 500 MG TABLET PO SCH (18:12)
[2019-12-10] MEDS: FERROUS SULFATE 325 MG TABLET PO SCH (18:12)
[2019-12-10] MEDS: IBUPROFEN 800 MG TABLET PO SCH (21:53)
[2019-12-10] MEDS: FAMOTIDINE 20 MG TABLET PO SCH (21:53)
[2019-12-11] MEDS: IBUPROFEN 800 MG TABLET PO SCH ×5 (05:37→21:13)
[2019-12-11 08:32] LABS: HEMATOCRIT 30.5 % (36.0-47.0); HEMOGLOBIN 10.9 g/dL (12.0-15.5); MEAN CORPUSCULAR HEMOGLOBIN 31.8 pg (27.0-33.4); MEAN CORPUSCULAR HGB CONC 35.7 g/dL (32.0-36.0); MEAN CORPUSCULAR VOLUME 89 fl (80-97); PLATELET COUNT 138 10^3/uL (150-450); RED BLOOD COUNT 3.43 10^6/uL (3.72-5.28); RED CELL DISTRIBUTION WIDTH 13.5 % (11.5-14.0); WHITE BLOOD COUNT 9.4 10^3/uL (4.0-10.5)
[2019-12-11] MEDS: FAMOTIDINE 20 MG TABLET PO SCH ×2 (10:36→21:13)
[2019-12-11] MEDS: FERROUS SULFATE 325 MG TABLET PO SCH ×2 (10:36→17:46)
[2019-12-11] MEDS: PRENATAL VITAMIN W DHA CAPSULE PO SCH (10:36)
[2019-12-11] MEDS: SENNOSIDES/DOCUSATE 8.6-50 MG 1 EACH TABLET PO SCH (10:36)
[2019-12-11] MEDS: DOCUSATE SODIUM 100 MG CAPSULE PO SCH ×2 (10:36→17:46)
--- NOTE | 2019-12-11 14:05 | PDOC PROGRESS REPORT ---
Subjective-OB Progress Note for:: 12/11/19 Subjective: on the phone during visit. states she's doing good. denies needs Physical Exam (OB) Vital Signs: Temp Pulse Resp BP Pulse Ox 97.7 F 62 20 97/54 L 99 12/11/19 07:30 12/11/19 07:30 12/11/19 07:30 12/11/19 07:30 12/11/19 07:30 Intake & Output 12/10/19 12/11/19 12/12/19 06:59 06:59 06:59 Intake Total 2400 Balance 2400 Weight 94 kg - Maternal Morbidity 59. Maternal Morbidity (serious complications experinced by the mother assoc iated with labor and delivery: None of the above - Abdomen Description: Soft Hernia Present: No Fundal Description: Firm, Midline Fundal Height: u/u - u/2 - Abdominal Distension: No distension Tenderness: Nontender - Extremities Lower extremities: Ronny's sign - neg Calf: Normal, Nontender Objective-Diagnostic Laboratory: 12/11/19 07:52 12/11/19 07:52 WBC 9.4 RBC 3.43 L Hgb 10.9 L Hct 30.5 L MCV 89 MCH 31.8 MCHC 35.7 RDW 13.5 Plt Count 138 L Assessment and Plan(PN) - Assessment and Plan (1) Shoulder dystocia during labor and delivery, delivered Is this a current diagnosis for this admission?: Yes (2) Herpes genitalis Is this a current diagnosis for this admission?: Yes - Time Spent with Patient Time with patient: Less than 15 minutes Medications reviewed and adjusted accordingly: Yes - Disposition Anticipated Discharge Disposition: Home, Self Care Anticipated Discharge Timeframe: within 24 hours
[2019-12-11] MEDS: VALACYCLOVIR HCL 500 MG TABLET PO SCH (17:46)
[2019-12-12] MEDS: IBUPROFEN 800 MG TABLET PO SCH (05:39)
[2019-12-12] MEDS: SENNOSIDES/DOCUSATE 8.6-50 MG 1 EACH TABLET PO SCH (10:31)
[2019-12-12] MEDS: DOCUSATE SODIUM 100 MG CAPSULE PO SCH (10:31)
[2019-12-12] MEDS: PRENATAL VITAMIN W DHA CAPSULE PO SCH (10:31)
[2019-12-12] MEDS: FAMOTIDINE 20 MG TABLET PO SCH (10:31)
[2019-12-12] MEDS: FERROUS SULFATE 325 MG TABLET PO SCH (10:31)
--- NOTE | 2019-12-12 10:36 | PDOC DISCHARGE SUMMARY ---
Impression - Admit/DC Date/PCP Admission Date/Primary Care Provider: 12/10/19 09:58 Discharge Date: 12/12/19 - Discharge Diagnosis (1) Shoulder dystocia during labor and delivery, delivered Is this a current diagnosis for this admission?: Yes (2) Herpes genitalis Is this a current diagnosis for this admission?: Yes - Additional Information Discharge Diet: Regular Discharge Activity: Balance Activity w/Rest, Pelvic Rest Prescriptions: Ibuprofen [Motrin 800 mg Tablet] 800 mg PO Q8HP PRN #60 tablet PRN Reason: Vit/Dha [ Multi + Dha Capsule] 1 cap PO DAILY #90 capsule Home Medications: Ibuprofen [Motrin 800 mg Tablet] 800 mg PO Q8HP PRN #60 tablet 12/12/19 Vit/Dha [ Multi + Dha Capsule] 1 cap PO DAILY #90 capsule 12/12/19 Hospital Course 59. Maternal Morbidity (serious complications experinced by the mother associated with labor and delivery: None of the above Results Laboratory Results: WBC 9.4 10^3/uL (4.0-10.5) 12/11/19 07:52 RBC 3.43 10^6/uL (3.72-5.28) L 12/11/19 07:52 Hgb 10.9 g/dL (12.0-15.5) L 12/11/19 07:52 Hct 30.5 % (36.0-47.0) L 12/11/19 07:52 MCV 89 fl (80-97) 12/11/19 07:52 MCH 31.8 pg (27.0-33.4) 12/11/19 07:52 MCHC 35.7 g/dL (32.0-36.0) 12/11/19 07:52 RDW 13.5 % (11.5-14.0) 12/11/19 07:52 Plt Count 138 10^3/uL (150-450) L 12/11/19 07:52 Lymph % (Auto) 15.5 % (13-45) 12/10/19 10:42 [place] % (Auto) 5.3 % (3-13) 12/10/19 10:42 Eos % (Auto) 0.8 % (0-6) 12/10/19 10:42 Baso % (Auto) 0.4 % (0-2) 12/10/19 10:42 Absolute Neuts (auto) 7.1 10^3/uL (1.7-8.2) 12/10/19 10:42 Absolute Lymphs (auto) 1.4 10^3/uL (0.5-4.7) 12/10/19 10:42 Absolute Monos (auto) 0.5 10^3/uL (0.1-1.4) 12/10/19 10:42 Absolute Eos (auto) 0.1 10^3/uL (0.0-0.6) 12/10/19 10:42 Absolute Basos (auto) 0.0 10^3/uL (0.0-0.2) 12/10/19 10:42 Seg Neutrophils % 78.0 % (42-78) 12/10/19 10:42 Urine Color YELLOW 12/10/19 10:18 Urine Appearance CLEAR 12/10/19 10:18 Urine pH 6.0 (5.0-9.0) 12/10/19 10:18 Ur Specific [place] 1.014 12/10/19 10:18 Urine Protein NEGATIVE mg/dL (NEGATIVE) 12/10/19 10:18 Urine Glucose (UA) NEGATIVE mg/dL (NEGATIVE) 12/10/19 10:18 Urine Ketones NEGATIVE mg/dL (NEGATIVE) 12/10/19 10:18 Urine Blood SMALL (NEGATIVE) H 12/10/19 10:18 Urine Nitrite NEGATIVE (NEGATIVE) 12/10/19 10:18 Urine Bilirubin NEGATIVE (NEGATIVE) 12/10/19 10:18 Urine Urobilinogen NEGATIVE mg/dL (<2.0) 12/10/19 10:18 Ur Leukocyte Esterase TRACE (NEGATIVE) H 12/10/19 10:18 Urine Ascorbic Acid NEGATIVE (NEGATIVE) 12/10/19 10:18 Urine Opiates Screen NEGATIVE 12/10/19 10:18 Urine Methadone Screen NEGATIVE 12/10/19 10:18 Ur Barbiturates Screen NEGATIVE 12/10/19 10:18 Ur Phencyclidine Scrn NEGATIVE 12/10/19 10:18 Ur Amphetamines Screen NEGATIVE 12/10/19 10:18 U Benzodiazepines Scrn NEGATIVE 12/10/19 10:18 Urine Cocaine Screen NEGATIVE 12/10/19 10:18 U Marijuana (THC) Screen NEGATIVE 12/10/19 10:18 RPR NONREACTIVE (NONREACTIVE) 12/10/19 10:42 Blood Type O NEGATIVE 12/10/19 10:42 Antibody Screen NEGATIVE 12/10/19 10:42 Plan Plan of Treatment: follow up in 4 weeks at [facility] for post check
[2019-12-12 12:54] VITALS: BP 97/54
[2019-12-14 07:19] LABS: HSV-I IGG AB <0.91 index (0.00-0.90)
== END 2019-12-12 13:47 | disposition home or self-care (01) | DRG 806 ==
LOC: LC 09:46 → LR 09:58 → EEVIPCON 09:58 → 2S 14:39
PROVIDERS: ADMIT Obstetrics & Gynecology; ATTEND Obstetrics & Gynecology
PROC: 10E0XZZ Delivery of Products of Conception, External Approach (ICD-10-PCS; principal; 2019-12-10)
DX: O99.334 Smoking (tobacco) complicating childbirth (principal); O98.32 Other infections with a predominantly sexual mode of transmission complicating childbirth; Z37.0 Single live birth; F17.210 Nicotine dependence, cigarettes, uncomplicated; O99.324 Drug use complicating childbirth; O77.0 Labor and delivery complicated by meconium in amniotic fluid; O66.0 Obstructed labor due to shoulder dystocia; F15.90 Other stimulant use, unspecified, uncomplicated; F12.90 Cannabis use, unspecified, uncomplicated; A60.00 Herpesviral infection of urogenital system, unspecified; Z79.899 Other long term (current) drug therapy; O99.344 Other mental disorders complicating childbirth; F41.9 Anxiety disorder, unspecified; F32.9 Major depressive disorder, single episode, unspecified; Z3A.41 41 weeks gestation of pregnancy
CPT/HCPCS: 36415; 80307; 81005; 85025; 85027; 86592; 86695; 86696; 86850; 86900; 86901; 88307; J1200; J2300; J2590; J3490